=== PATIENT | male | born 1950 | race Caucasian/White ===

== ENCOUNTER → 2018-01-08 07:27 | Day surgery (SDC) | payer MEDICARE, OTHER ==
[~2018-01-08 07:27] MED LIST: Clindamycin 900 MG IVPREMIX(* 900 MG/50 ML SDV IV ONE; Clopidogrel TAB* 300 MG ONE; Flumazenil* 0.1 MG/ML 5 ML MDV ONE; Heparin 2 UNITS/ML IVPREMIX* 2,000 ML IV ONE; Heparin(*) 1000 UNIT/ML 10 ML VIAL CATH LAB IV ONE; Iohexol 350 (CONTRAST) 200 ML MDV IV ONE; LORazepam TAB(*) 1 MG ONE; Lidocaine 1% INJ* 10 MG/ML 30 ML SDV ONE; Midazolam* 1 MG/ML 10 ML VIAL (10 MG) ONE; Naloxone* 0.4 MG/ML 1 ML VIAL ONE; VERAPAMIL 2.5 MG/ML 2 ML VIAL ** 5 mg/2 ml ONE; fentaNYL* 50 MCG/ML 2 ML VIAL (100 MCG VIAL) IV SLOW PU PRN; fentaNYL* 50 MCG/ML 5 ML VIAL (250 MCG VIAL) ONE; hydrALAZINE IV* 20 MG/ML VIAL ONE; nitroGLYCERIN DRIP* 25,000 MCG/250 ML BTL ONE
[2018-01-08 09:02] LABS: ABS Basophils 0.1 10^3/ul (0-0.2); ABS Eosinophils 0.5 10^3/ul (0-0.6); ABS Lymphocytes 2.2 10^3/ul (1.0-4.8); ABS Monocytes 1.2 10^3/ul (0-0.8); ABS Neutrophils 6.6 10^3/ul (1.5-7.7); ABS Nucleated RBC 0 10^3/ul; Eosinophil % 4.8 % (0-6); Hematocrit 30 % (42-52); Hemoglobin 10.2 g/dl (14.0-18.0); Lymphocyte % 20.9 % (25-47); Mean Corpuscular HGB Conc 34 g/dl (31-36); Mean Corpuscular Hemoglobin 33 pg (27-31); Mean Corpuscular Volume 97 fL (80-94); Mean Platelet Volume 7 um3 (7.4-10.4); Nucleated Red Blood Cells % 0.1; Platelet Count 225 10^3/ul (150-450); Red Blood Count 3.08 10^6/ul (4.0-5.4); Red Cell Distribution Width 15 % (10.5-15); White Blood Count 10.6 10^3/ul (3.5-10.8)
[2018-01-08 09:14] LABS: INR 0.99 (0.77-1.02)
[2018-01-08 09:56] LABS: EGFR Non-African American 85.3 (>60)
[2018-01-08 16:10] VITALS: BP 173/78
--- NOTE | 2018-01-08 16:32 | PN ---
Progress Note - Progress Note Date of Service: 01/08/18 SOAP: Subjective: No pain or other complaints. Denies left leg or foot pain despite laying flat for several hours. Objective: Selected Entries 01/08/18 16:00 Pulse Rate 63 Heart Rate 64 Respiratory 15 Rate Blood Pressure 173/78 (mmHg) Blood Pressure 100 Mean O2 Sat by Pulse 99 Oximetry NAD, AAO x 3 Left CF arteriotomy site is soft, nontender. 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 Physical exam findings indicate patent flow from groin to foot now. Plan: 1. Plavix 75 mg PO daily x 6 months. 2. ASA 81 mg PO daily for life. 3. Continue high quality wound care to left medial ankle. 4. Interventional Radiology clinic follow up in 1 month. 5. As discussed with patient: the right leg has even more severe atherosclerotic occlusions. When/if the patient chooses to do so revascularization can be attempted at E.
--- NOTE | 2018-01-08 16:46 | RAD ---
INDICATION: Gangrenous wound overlying the medial left ankle in a patient with diffuse calcified atherosclerosis. The patient is immediately status post revascularization, atherectomy and angioplasty of the left SFA, popliteal artery and tibioperoneal trunk. COMPARISON: Same day arteriography. TECHNIQUE: Ankle-brachial indices and Doppler tracings were obtained of the lower extremities bilaterally. Volume pulse recordings were acquired at the bilateral ankles. REPORT: Ankle-brachial indices: Right: Value (SBP) Index Brachial: 180 Posterior tibialis: 129 0.72 Dorsalis pedis: 140 0.78 Left: Value (SBP) Index Brachial: 180 Posterior tibialis: 133 0.74 Dorsalis pedis: 127 0.71 Doppler waveforms (acquired at rest): In the interrogated lower extremity arteries, Doppler waveforms are monophasic in all distributions. Volume pulse recordings (acquired at rest): There is significantly increased amplitude measured at the left ankle (38 mm) relative to the right (16 mm). IMPRESSION: Fairly symmetric claudication values in the 0.7-0.8 range measured bilaterally. There is significantly increased amplitude on the volume pulse recordings measured at the left ankle relative to the right.
--- NOTE | 2018-01-11 12:01 | RAD ---
CPT II Codes: 6045F Procedure(s) performed: 1. Diagnostic right lower extremity arteriogram. 2. Revascularization of occluded right superficial femoral and popliteal arteries. 3. Diamondback orbital atherectomy of the left superficial femoral artery, left popliteal artery and tibioperoneal trunk. 4. Balloon angioplasty of the aforementioned arteries. Date of service: January 08, 2018 Indication for procedure: Gangrenous wound at medial left ankle Comparison: CTA aorta with runoff dated December 17, 2017 that shows diffuse calcified atherosclerosis and varied degrees of stenoses and occlusion involving the bilateral superficial femoral and popliteal arteries. Contrast: 80 mL Omnipaque 300 Fluoroscopy Time: 30.6 minutes Vessels Accessed: Percutaneous access was obtained with ultrasound guidance in the left common femoral artery in the antegrade direction towards the foot. Catheter arteriography, with the catheter tip located within the lumen of the following arteries, was performed at the left common femoral artery, left popliteal artery, left tibioperoneal trunk and left posterior tibial artery. Anesthesia: Conscious sedation with IV Fentanyl and Versed as well as local 1% lidocaine injected locally at the arteriotomy site. Conscious sedation time: Timeout: 959 hours Case end: 1232 hours Total conscious sedation time: 2 hours and 33 minutes Additional medications: * 400 mcg IA nitroglycerin injected intermittently throughout the course of the procedure to alleviate arterial spasm. * IV heparin 7000 Units to achieve a goal ACT of 250-300. * The patient received 1.0 mg of p.o. Ativan prior to the onset of the procedure. PROCEDURE NOTE AND INTRAPROCEDURAL IMAGING FINDINGS: Immediately prior to the procedure the patient signed consent after thoroughly discussing all risks, benefits and alternative therapies. The patient was positioned on the fluoroscopy table in the supine position and the bilateral groins and left ankle were prepped and the patient was draped in standard sterile fashion. Using fluoroscopic imaging the location of the left common femoral head was marked externally with a skin marker on the patient's groin. Utilizing sonographic guidance and palpation, the left common femoral artery was cannulated overlying the femoral head with an 18-gauge needle. An ultrasound image was saved. A 0.035" wire was slowly and smoothly advanced into the common femoral artery and distally into the proximal left superficial femoral artery under fluoroscopic imaging. No buckling of the wire was visualized to indicate dissection. With the wire securing percutaneous arterial access, the needle was removed and a 5-Brazilian SideArm access sheath was advanced under fluoroscopic control into the common femoral artery antegrade direction towards the foot into the proximal superficial femoral artery securing access. To further characterize and exactly locate the extent of atherosclerotic disease involving the left lower extremity diagnostic catheter arteriography was necessary. Despite the previous CTA, the head of the calcium burden in the left leg arteries prevented reliable determination of disease severity with CTA alone and arteriography was necessary for accurate depiction of disease as well as for guiding a treatment. Calcified atherosclerosis prior to contrast injection is relatively depicted in the left lower extremity arteries. Contrast arteriography with the tip of the access sheath in the left superficial femoral artery duplex multiple foci of stenosis in the proximal left superficial femoral artery and hypertrophy of the femoral profundus. Arteriography of the lower half of the left superficial femoral artery and popliteal artery was performed from the access sheath which depicted multiple foci of complete occlusion of the distal SFA and superior popliteal artery with collateralized filling provided by muscular branches of the left femoral profundus. The distal left popliteal artery appeared to be patent. Over the wire the 5-Brazilian SideArm access sheath was removed and replaced with a 7-Brazilian 23 cm length access sheath which was advanced under fluoroscopic control into the proximal superficial femoral artery. Utilizing a combination of a 0.035 inch hydrophilic wire and a 4-Brazilian curved tip catheter the occluded left superficial femoral artery and proximal left popliteal artery was revascularize and the wire was advanced as far as the tibioperoneal trunk. Over the wire a TerumKili NaviCross catheter was advanced until the tip was in the popliteal artery. The wire was removed and contrast arteriography was performed showing a patent distal left popliteal artery. At approximately the branch level of the left anterior tibial artery there is an eccentric filling defect consistent with calcium at the superiormost portion of the left tibioperoneal trunk. Distal to this there appears to be adequate filling of the proximal infrapopliteal arteries. Arteriography of the more distal infrapopliteal arteries defects patent in-line flow in the posterior tibial and anterior tibial artery with communication of the midfoot "pedal loop". The left peroneal artery provides flow up to the ankle joint in addition to providing collateralized flow supplementing the MILY and CLEAN ROOM OPERATOR. Through the catheter a 0.018 inch Viper wire was advanced to the distal left peroneal artery. Over the wire the CSI Diamondback Solid atherectomy system was advanced to the proximal left superficial femoral artery and orbital atherectomy was performed along essentially the entire length of the left superficial femoral artery and the proximal portion of the left popliteal artery. The system was advanced through the patent distal left popliteal artery and orbital atherectomy was performed at the level of the bifurcation of the MILY and superior portion of the tibioperoneal trunk to treat the focus of calcium identified on previous arteriography. The atherectomy system was drawn back and atherectomy was repeated at the more severe levels of stenosis and at the sites of previously identified occlusion. The 7-Brazilian access sheath was drawn back until the tip was in the common femoral artery and atherectomy was performed including the distal most portion of the left common femoral artery across the SFA ostium to include the proximal most portions of the left superficial femoral artery. Arteriography was acquired intermittently to evaluate for any dissection or signs of extravasation which were not seen. The atherectomy system was removed and a 5 mm x 200 mm Passeo-35 balloon was advanced and balloon angioplasty was performed from the distal most portion of the left common femoral artery, across the left SFA ostium and along the entire length of the superficial femoral artery into the proximal popliteal artery. The inferior most balloon angioplasty included the superior tibioperoneal trunk to treat the focus of stenosis identified at the beginning of the procedure. A final arteriogram was performed from the access sheath showing brisk patent flow throughout the length of the left SFA into the proximal portions of the infrapopliteal arteries. To better depicted the infrapopliteal arteries, at of concern for the patient's gangrenous left ankle wound, a 4-Brazilian catheter was advanced to the superior most portion of the left posterior tibial artery and arteriography was performed of the left posterior tibial artery demonstrating patent in-line flow into the plantar arteries. The catheter was drawn back to the tibioperoneal trunk and flow was documented in all 3 infrapopliteal arteries. Over the wire the access sheath was exchanged for a new 7-Brazilian, 11 cm length access sheath intended specifically for percutaneous arterial closure. Through the side arm of the access sheath arteriography of the right common femoral artery demonstrated an appropriate puncture of the common femoral artery above the bifurcation and below the inferior epigastric artery. After an appropriate resterilization of the arteriotomy and exchange for new sterile gloves, attempt was made to deploy the minx closure device which failed due to a punctured balloon. Access with a hydrophilic wire was again made into the superficial femoral artery allowing for the sheath to be reinserted into the artery. A second Minx closure device was deployed successfully at the common femoral arteriotomy and pressure held for approximately 15 minutes. There were no signs of bleeding at the percutaneous arterial access site and the site was dressed with sterile gauze and Tegaderm. The patient tolerated the procedure well and was transferred to angiography holding bay for standard post procedural observation. SUMMARY OF PROCEDURE, IMAGING FINDINGS AND INTERVENTIONS PERFORMED: 1. Diagnostic studies performed: * Arterial access was obtained at the left common femoral artery in the antegrade direction (i.e. towards the foot) with ultrasound guidance. A sonographic image was recorded. * Although the patient had a prior CTA with runoff, the extensive calcified atherosclerosis of the left leg arteries prevented reliable determination of foci of occlusion as well as degree of stenoses involving the left leg arteries with CTA and catheter arteriography was necessary. Diagnostic catheter angiography (necessary for accurate diagnosis and to perform the appropriate interventions) was performed with the catheter tip in the left common femoral artery, left superficial femoral artery, left popliteal artery, left tibioperoneal trunk and left posterior tibial artery. * Catheter arteriography was performed of the left leg arterial system from the distal left external iliac artery to the "pedal loop" of the left foot. * At the conclusion of the procedure arteriography was performed through the side arm of the access sheath to image the distal left external iliac artery, left common femoral artery and proximal superficial femoral artery and femoral profundus. 2. Interpretation of diagnostic studies performed: * Multifocal high-grade stenoses of the left superficial femoral artery with multiple occlusions in the distal left superficial femoral artery and superior popliteal artery as well as focus of high-grade stenosis at the superiormost portion of the left tibioperoneal trunk. * All 3 infrapopliteal arteries exhibited adequate patency with 2 vessel runoff provided by the MILY and CLEAN ROOM OPERATOR with a communicating "pedal loop" * Arteriography performed for the purpose of deploying a percutaneous arterial closure device demonstrates adequately patent left external iliac artery, common femoral artery and proximal superficial femoral artery and femoral profundus. 3. Surgical interventions performed: * Revascularization through the occluded left SFA and popliteal arteries utilizing a hydrophilic wire and 4-Brazilian curved tip catheter. * Orbital atherectomy with the CSI Diamondback Solid system from the distal most left common femoral artery, across the left SFA ostium, through the entire length of the left superficial femoral artery and superior portions of the left popliteal artery and also at the superiormost left tibioperoneal trunk. * Balloon angioplasty of the previously atherectomized arteries with a 5 mm x 200 mm Passeo-35 balloon. The balloon was inflated just below burst pressure yielding an approximate diameter measurement of 5.5 mm. * Closure of the right common femoral artery was achieved with a Minx closure device followed by 15 minutes of gentle manual pressure. 4. Interpretation of interventions performed: * Final post procedural arteriography demonstrated brisk in-line flow from the left common femoral artery through the SFA, popliteal and infrapopliteal arteries as far as the left mid foot "pedal loop". Plan: 1. Aspirin 81 mg p.o. daily for life. 2. Plavix 75 mg p.o. daily x 6 months. 3. Clinical and imaging follow-up according to standard Interventional Radiology protocol.
== END | disposition home or self-care (01) ==
LOC: CHICATH 07:27
PROVIDERS: ATTEND Radiology Diagnostic Radiology
DX: Z02.9 Encounter for administrative examinations, unspecified (principal)
CPT/HCPCS: 36415; 76937; 80048; 85025; 85610; 85730; 93922; 99156; 99157; A9270-GY; C1724; C1725; C1760; C1769; C1887; J0360; J1644; J2250; J2310; J3010

== ENCOUNTER 2018-01-08 22:18 | Inpatient (IN) | payer MEDICARE, OTHER ==
[2018-01-08] MEDS ORDERED: NS 0.9% 1000 ML*IV.FLUID IV ONE (22:55)
[2018-01-08] MEDS ORDERED: Acetaminophen TAB* 325 MG PO ONE (22:55)
[2018-01-08] MEDS ORDERED: Vancomycin(*) 1,000 MG in NS 0.9% 250 ML* 250 ML IVPB ONE (22:58)
[2018-01-08] MEDS ORDERED: Piperacillin/Tazobac ADVAN(*) 3.375 GM in NS 0.9% 100 ML* 100 ML IVPB ONE (22:59)
[2018-01-08 23:17] LABS: ABS Basophils 0 10^3/ul (0-0.2); ABS Eosinophils 0.2 10^3/ul (0-0.6); ABS Lymphocytes 1.1 10^3/ul (1.0-4.8); ABS Monocytes 1.4 10^3/ul (0-0.8); ABS Neutrophils 7.8 10^3/ul (1.5-7.7); ABS Nucleated RBC 0 10^3/ul; Eosinophil % 1.6 % (0-6); Hematocrit 31 % (42-52); Hemoglobin 10.4 g/dl (14.0-18.0); Lymphocyte % 10.5 % (25-47); Mean Corpuscular HGB Conc 34 g/dl (31-36); Mean Corpuscular Hemoglobin 33 pg (27-31); Mean Corpuscular Volume 96 fL (80-94); Mean Platelet Volume 7 um3 (7.4-10.4); Nucleated Red Blood Cells % 0.2; Platelet Count 217 10^3/ul (150-450); Red Blood Count 3.19 10^6/ul (4.0-5.4); Red Cell Distribution Width 15 % (10.5-15); White Blood Count 10.5 10^3/ul (3.5-10.8)
[2018-01-08 23:19] LABS: INR 1.03 (0.77-1.02)
[2018-01-08 23:28] LABS: EGFR Non-African American 82.1 (>60)
--- NOTE | 2018-01-09 00:44 | ED ---
Doroteo Franco Tecjoon scribjerome for Fara Lema MD on 01/08/18 at 2258 . Complex/Multi-Sys Presentation - HPI Summary HPI Summary: This patient is a 67 year old male BIBA to [facility] with a chief complaint of weakness since approx. 1800 today. Patient states that he has suffered two mechanical falls, in which his legs gave out on him. The pain is rated 4/10 in severity. Symptoms aggravated by nothing. Symptoms alleviated by nothing. 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 Patient additionally reports general bodyaches, ulcer in left foot. Patient denies fever, chills. Patient states that he has never had a stroke before. Patient is diabetic. - History Of Current Complaint Chief Complaint: EDWeakness Time Seen by Provider: 01/08/18 22:27 Hx Obtained From: Patient Onset/Duration: Lasting Hours, Still Present Timing: Constant Severity Initially: Moderate - 4/10 Aggravating Factor(s): Nothing Alleviating Factor(s): Nothing Associated Signs And Symptoms: Positive: Other - general bodyaches, ulcer on left foot. Negative: Fever - Allergies/Home Medications Allergies/Adverse Reactions: Allergies Allergy/AdvReac Type Severity Reaction Status Date / Time No Known Drug Allergies Allergy Unknown Unknown Verified 12/17/17 10:31 Reaction Details PMH/Surg Hx/FS Hx/Imm Hx Previously Healthy: No Endocrine/Hematology History: Reports: Hx Diabetes Cardiovascular History: Reports: Hx Hypertension History: Denies: Hx Renal Disease Opthamlomology History: Denies: Hx Legally Blind EENT History: Denies: Hx Deafness - Surgical History Surgery Procedure, Year, and Place: back surgery. left knee. bile duct Infectious Disease History: No Infectious Disease History: Denies: Traveled Outside the [place] in Last 30 Days - Family History Known Family History: Positive: Diabetes - Social History Alcohol Use: None Hx Substance Use: No Substance Use Type: Reports: None Hx Tobacco Use: Yes Smoking Status (MU): Heavy Every Day Tobacco Smoker Review of Systems Negative: Fever, Chills Positive: Myalgia, Other - ulcer on left foot Positive: Weakness All Other Systems Reviewed And Are Negative: Yes Physical Exam - Summary Physical Exam Summary: VITAL SIGNS: Reviewed. GENERAL: Patient is a well-developed and nourished malewho is lying comfortable in the stretcher. Patient is not in any acute respiratory distress. HEAD AND FACE: No signs of trauma. No ecchymosis, hematomas or skull depressions. No sinus tenderness. EYES: PERRLA, EOMI x 2, No injected conjunctiva, no nystagmus. EARS: Hearing grossly intact. Ear canals and tympanic membranes are within normal limits. MOUTH: Oropharynx within normal limits. NECK: Supple, trachea is midline, no adenopathy, no JVD, no carotid bruit, no c- spine tenderness, neck with full ROM. CHEST: Symmetric, no tenderness at palpation LUNGS: Clear to auscultation bilaterally. No wheezing or crackles. CVS: Regular rate and rhythm, S1 and S2 present, no murmurs or gallops appreciated. ABDOMEN: Soft, non-tender. No signs of distention. No rebound no guarding, and no masses palpated. Bowel sounds are normal. EXTREMITIES: Bilateral trace edema in legs. Left foot and ankle swollen. 3 x 1.5 inch ulcer in medial aspect of left ankle thats gangrous, patient stays it s old NEURO: Alert and oriented x 3. No acute neurological deficits. Speech is normal and follows commands. SKIN: Dry and warm Triage Information Reviewed: Yes Vital Signs On Initial Exam: Initial Vitals Temp Pulse Resp BP Pulse Ox 99.5 F 75 15 149/66 98 01/08/18 22:39 01/08/18 22:39 01/08/18 22:39 01/08/18 22:39 01/08/18 22:39 Vital Signs Reviewed: Yes Diagnostics - Vital Signs Vital Signs Temp Pulse Resp BP Pulse Ox 01/08/18 22:39 99.5 F 75 15 149/66 98 - Laboratory Result Diagrams: 01/08/18 22:34 01/08/18 22:34 Lab Statement: Any lab studies that have been ordered have been reviewed, and results considered in the medical decision making process. - Radiology XR Ankle Xray Interpretation: Positive (See Comments) - XR Ankle reveals, per radiologist , IMPRESSION: ankle shows osteopenia and no signs of osteomyelitis. No fracture ED physician has reviewed this radiology report. Pending official report. Radiology Interpretation Completed By: ED Physician CXR Xray Interpretation: Positive (See Comments) - CXR reveals, per radiologist, IMPRESSION: Bilateral Mild congestion ED physician has reviewed this radiology report. Pending official report Radiology Interpretation Completed By: ED Physician XR Foot Xray Interpretation: No Acute Changes Radiology Interpretation Completed By: ED Physician - CXR Foot reveals, per radiologist, IMPRESSION: No Acute Process. ED physician has reviewed this radiology report. Pending official report - EKG 2302 Cardiac Rate: NL EKG Rhythm: Sinus Rhythm - 69 EKG Interpretation: NSR (69 BPM), Normal axis. Normal interval. No ischemic changes. Complex Multi-Symp Course/Dx Course Of Treatment: This patient is a 67 year old male BIBA to [facility] with a chief complaint of weakness since approx. 1800 today. Patient states that he has suffered two mechanical falls, in which his legs gave out on him. Patient received an angioplasty today, went home, and had difficulty ambulating. An EKG , taken 2301 reveals NSR (69 BPM), Normal axis. Normal interval. No ischemic changes. XR Ankle reveals, per radiologist, IMPRESSION: ankle shows osteopenia and no signs of osteomyelitis. No fracture. ED physician has reviewed this radiology report. Pending official report. CXR reveals, per radiologist, IMPRESSION: Bilateral Mild congestion. ED physician has reviewed this radiology report. Pending official report. CXR Foot reveals, per radiologist, IMPRESSION: No Acute Process. ED physician has reviewed this radiology report. Pending official report. Bloodwork Obtained. Urinalysis Obtained. In the ED course the patient was given Tylenol, Vancomycin, Piperacillin. We discussed patient care with Dr. Abarca (Hospitalist) and they agreed to accept the patient. Patient will be admitted to the hospital with a diagnosis of cellulitis of the left leg. The patient is agreeable with this plan. - Diagnoses Provider Diagnoses: Cellulitis of left leg - Physician Notifications Discussed Care Of Patient With: Rohan Abarca - Hospitalist Time Discussed With Above Provider: 00:39 - We discussed patient care with Dr. Abarca (Hospitalist) and they agreed to accept the patient. Instructed by Provider To: Admit As Inpatient Discharge - Discharge Plan Condition: Stable Disposition: ADMITTED TO [facility] Referrals: Quentin Dowell MD [Primary Care Provider] - The documentation as recorded by the Doroteo harvey Tecjoon accurately reflects the service I personally performed and the decisions made by , Fara Lema MD.
[2018-01-09] MEDS ORDERED: Albuterol 2.5 MG/3 ML NEB.SOL* (0.083%) INH PRN (01:43)
[2018-01-09] MEDS ORDERED: Ondansetron INJ* 2 MG/ML VIAL IV PRN (01:44)
[2018-01-09] MEDS ORDERED: Vancomycin per Pharmacy* NOTE FOLLOW UP SCH (02:00)
--- NOTE | 2018-01-09 02:11 | HP ---
H&P (Free Text) History and Physical: PCP: Christopher Dowell MD Date/Time: 01/09/2018 022 CC: weakness, falls HPI: Mr Au is a 67YO poor historian who relates [place] [facility] [place] rev[place]ization procedure was performed via Miguel Mckeon MD interventional radiology was performed. 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 evening into Thursday he developed progressive generalized weakness culminating in a fall from which he was unable to get up. He denies pain or deformity. EMS was called. He denies cough, congestion, F/C, N /V, diarrhea, chest pain, palpitations, abdominal pain, change in bowel/bladder , or other issues. PMedHx DM2 HLD GERD Ambulatory Orders Atorvastatin* [Lipitor*] 20 mg PO DAILY 01/07/18 Cholecalciferol (Vitamin D3) [Vitamin D3] 2,000 unit PO DAILY 01/07/18 Cholestyramine Resin* [Questran*] 4 gm PO BID 01/07/18 Collagenase 250 MG/GM OINT* [Santyl 250 mg/gm Oint*] 1 applic .SEE ORDER SEE INSTRUCTIONS 01/07/18 Divalproex ER TAB(*) [Depakote ER TAB(*)] 3 tab PO BID 01/07/18 Insulin Detemir (NF) [Levemir (NF)] 5 unit SUBCUT BEDTIME 01/07/18 Pantoprazole Sodium 40 mg PO DAILY 01/07/18 Ursodiol CAP* [Actigall CAP 300 MG*] 300 mg PO DAILY 01/07/18 Clopidogrel TAB* [Plavix TAB*] 75 mg PO DAILY 180 Days tab 01/08/18 Allergies No Known Drug Allergies Allergy (Unknown, Verified 12/17/17 10:31) Unknown Reaction Details PSurgHx LLE revascularization 01/07/2018 laparotomy for uncertain cause SocHx: active smoker, no alcohol or recreational drugs; full code status FamHx: Mother: passed at 96 2nd "old age"; Father: passed at 74 2nd colon CA; Sister 1: no known health issues; Sister 2: no known health issues; Brother 1: no known health issues; Brother 2: no known health issues ROS: as above, otherwise reviewed and all were negative vitals: Vital Signs Temp 37.1 C 03/10/18 01:48 Pulse 65 01/09/18 01:48 Resp 18 01/09/18 01:48 BP 110/72 01/09/18 01:48 Pulse Ox 100 01/09/18 01:48 Intake & Output 01/08/18 01/08/18 01/09/18 11:59 23:59 11:59 Intake Total 250 Balance 250 Weight 85.729 kg Intake: IV Fluids 250 Constitutional: NAD, normally developed, well-nourished elderly white male HEENM: atraumatic; sclera/conjunctiva: anicteric/clear; hearing: clinically mildly decreased; oropharynx: clear, mucosa tacky Neck: soft tissue: non-tender; thyroid: normal Pulmonary: clear to auscultation bilaterally, good aeration, no accessory muscle use CV: RR/RR, normal S1S2, no carotid bruit, no jugular venous distention, 2+ B DP/ PT, trace LLE edema Abdominal: soft, non-distended, non-tender, no rebound/guarding/rigidity, normoactive bowel sounds, no hepatosplenomegaly or masses, no costovertebral angle tenderness Musculoskeletal: general: grossly intact, no tenderness w/ palpation Integumental: LLE arterial ulcer with eschar & malodor with associated erythema & warmth Psychiatric orientation: AA&O to PPS affect: calm mood: cooperative eye contact: poor content: seemingly reliable responses: mildly slowed insight: fair Testing: Lab Results 01/08/18 01/08/18 01/08/18 Range/Units 22:34 22:34 22:34 WBC 10.5 (3.5-10.8) 10^3/ul RBC 3.19 L (4.0-5.4) 10^6/ul Hgb 10.4 L (14.0-18.0) g/dl Hct 31 L (42-52) % MCV 96 H (80-94) fL MCH 33 H (27-31) pg MCHC 34 (31-36) g/dl RDW 15 (10.5-15) % Plt Count 217 (150-450) 10^3/ul MPV 7 L (7.4-10.4) um3 Neut % (Auto) 74.3 (38-83) % Lymph % (Auto) 10.5 L (25-47) % [place] % (Auto) 13.2 H (0-7) % Eos % (Auto) 1.6 (0-6) % Baso % (Auto) 0.4 (0-2) % Absolute Neuts (auto) 7.8 H (1.5-7.7) 10^3/ul Absolute Lymphs (auto) 1.1 (1.0-4.8) 10^3/ul Absolute Monos (auto) 1.4 H (0-0.8) 10^3/ul Absolute Eos (auto) 0.2 (0-0.6) 10^3/ul Absolute Basos (auto) 0 (0-0.2) 10^3/ul Absolute Nucleated RBC 0 10^3/ul Nucleated RBC % 0.2 INR (Anticoag Therapy) 1.03 H (0.77-1.02) APTT 32.1 (26.0-36.3) seconds Sodium 127 L (133-145) mmol/L Potassium 4.6 (3.5-5.0) mmol/L Chloride 99 L (101-111) mmol/L Carbon Dioxide 23 (22-32) mmol/L Anion Gap 5 (2-11) mmol/L BUN 15 (6-24) mg/dL Creatinine 0.92 (0.67-1.17) mg/dL Est GFR ( Amer) 105.5 (>60) Est GFR (Non-Af Amer) 82.1 (>60) BUN/Creatinine Ratio 16.3 (8-20) Glucose 118 H (70-100) mg/dL Lactic Acid (0.5-2.0) mmol/L Calcium 8.7 (8.6-10.3) mg/dL Total Bilirubin 0.50 (0.2-1.0) mg/dL AST 19 (13-39) U/L ALT 9 (7-52) U/L Alkaline Phosphatase 81 (34-104) U/L Total Creatine Kinase 194 (10-223) U/L Troponin I 0.00 (<0.04) ng/mL C-Reactive Protein 19.06 H (< 5.00) mg/L Total Protein 6.1 L (6.4-8.9) g/dL Albumin 2.8 L (3.2-5.2) g/dL Globulin 3.3 (2-4) g/dL Albumin/Globulin Ratio 0.8 L (1-3) 01/08/18 Range/Units 22:34 WBC (3.5-10.8) 10^3/ul RBC (4.0-5.4) 10^6/ul Hgb (14.0-18.0) g/dl Hct (42-52) % MCV (80-94) fL MCH (27-31) pg MCHC (31-36) g/dl RDW (10.5-15) % Plt Count (150-450) 10^3/ul MPV (7.4-10.4) um3 Neut % (Auto) (38-83) % Lymph % (Auto) (25-47) % [place] % (Auto) (0-7) % Eos % (Auto) (0-6) % Baso % (Auto) (0-2) % Absolute Neuts (auto) (1.5-7.7) 10^3/ul Absolute Lymphs (auto) (1.0-4.8) 10^3/ul Absolute Monos (auto) (0-0.8) 10^3/ul Absolute Eos (auto) (0-0.6) 10^3/ul Absolute Basos (auto) (0-0.2) 10^3/ul Absolute Nucleated RBC 10^3/ul Nucleated RBC % INR (Anticoag Therapy) (0.77-1.02) APTT (26.0-36.3) seconds Sodium (133-145) mmol/L Potassium (3.5-5.0) mmol/L Chloride (101-111) mmol/L Carbon Dioxide (22-32) mmol/L Anion Gap (2-11) mmol/L BUN (6-24) mg/dL Creatinine (0.67-1.17) mg/dL Est GFR ( Amer) (>60) Est GFR (Non-Af Amer) (>60) BUN/Creatinine Ratio (8-20) Glucose (70-100) mg/dL Lactic Acid 1.3 (0.5-2.0) mmol/L Calcium (8.6-10.3) mg/dL Total Bilirubin (0.2-1.0) mg/dL AST (13-39) U/L ALT (7-52) U/L Alkaline Phosphatase (34-104) U/L Total Creatine Kinase (10-223) U/L Troponin I (<0.04) ng/mL C-Reactive Protein (< 5.00) mg/L Total Protein (6.4-8.9) g/dL Albumin (3.2-5.2) g/dL Globulin (2-4) g/dL Albumin/Globulin Ratio (1-3) ECG, personally reviewed: NSR rate 69, no ischemia CXR, personally reviewed: no acute process Impression: 67M presenting with LLE arterial ulcer & associated cellulitis DIAGNOSIS & PLAN Primary LLE arterial ulcer & associated cellulitis : s/p revascularization via Miguel Mckeon MD interventional radiology, consider consulting in AM : IV ABX : IVFs : blood & wound CXs : PT evaluation : supportive care Secondary DM2 : consistent carb diet : correctional insulin : A1c 5.4 11/2017 HLD : continue atorvastatin once reconciled GERD : omeprazole Admission Rational: inpatient for limb threatening cellulitis requiring IV ABX; inappropriate for outpatient setting DVTp: heparin SQ Code Status: full HCP: sister, Susie Toure
[2018-01-09 03:35] LABS: EGFR Non-African American 102.3 (>60)
[2018-01-09] MEDS ORDERED: Omeprazole CAP* 20 MG PO SCH (06:00)
[2018-01-09 06:17] LABS: ABS Basophils 0.1 10^3/ul (0-0.2); ABS Eosinophils 0.3 10^3/ul (0-0.6); ABS Lymphocytes 1.8 10^3/ul (1.0-4.8); ABS Monocytes 1.4 10^3/ul (0-0.8); ABS Neutrophils 6.8 10^3/ul (1.5-7.7); ABS Nucleated RBC 0 10^3/ul; Eosinophil % 2.7 % (0-6); Hematocrit 30 % (42-52); Hemoglobin 9.9 g/dl (14.0-18.0); Mean Corpuscular HGB Conc 34 g/dl (31-36); Mean Corpuscular Hemoglobin 33 pg (27-31); Mean Corpuscular Volume 97 fL (80-94); Mean Platelet Volume 7 um3 (7.4-10.4); Nucleated Red Blood Cells % 0.1; Platelet Count 187 10^3/ul (150-450); Red Blood Count 3.04 10^6/ul (4.0-5.4); Red Cell Distribution Width 16 % (10.5-15); White Blood Count 10.4 10^3/ul (3.5-10.8)
[2018-01-09 06:29] LABS: Urine Appearance Clear; Urine Blood 1+ (Negative); Urine Color Straw; Urine Ketones Negative (Negative); Urine Protein 2+(100 mg/dL) (Negative); Urine Urobilinogen Negative (Negative)
[2018-01-09 06:33] LABS: EGFR Non-African American 89.9 (>60)
[2018-01-09] MEDS: Insulin LISPRO* 1 UNITS UNIT SUBCUT SCH ×4 (07:22→20:40)
--- NOTE | 2018-01-09 07:52 | RAD ---
HISTORY: Fall, weakness, and COMPARISONS: None VIEWS: 6, Frontal, lateral, and oblique views of the left ankle and of the left foot FINDINGS: BONE DENSITY: There is diffuse osteopenia. BONES: There is no displaced fracture. There is a calcaneal enthesophytes. There is no appreciable erosion or periosteal reaction. JOINTS: There is mild osteoarthritis of the midfoot. There is osteoarthritis of the first MTP joint. ALIGNMENT: There is no dislocation. SOFT TISSUES: There is a soft tissue defect along the medial ankle consistent with the history of wound. There is dystrophic calcification of the soft tissues. OTHER FINDINGS: None. IMPRESSION: 1. SOFT TISSUE DEFECT OF THE ANKLE, WITHOUT APPRECIABLE EROSION OR PERIOSTEAL REACTION. PLAIN FILM FINDINGS OF OSTEOMYELITIS ARE RELATIVELY LATE FINDINGS. IF THERE IS PERSISTENT CLINICAL CONCERN FOR OSTEOMYELITIS, RECOMMEND CORRELATION WITH FOLLOWUP IMAGING, THREE-PHASE BONE SCANNING, WHITE BLOOD CELL SCAN, AND/OR MRI OF THE AFFECTED REGION. 2. OSTEOPENIA.
--- NOTE | 2018-01-09 07:54 | RAD ---
HISTORY: Weakness COMPARISONS: None VIEWS: 1: frontal portable view of the chest at 11:20 PM FINDINGS: LINES AND TUBES: None. CARDIOMEDIASTINAL SILHOUETTE: The cardiomediastinal silhouette is normal for portable technique. PLEURA: The costophrenic angles are sharp. No pleural abnormalities are noted. LUNG PARENCHYMA: The lung volumes are low. There is prominence of the central pulmonary vasculature.. ABDOMEN: The upper abdomen is clear. There is no subphrenic gas. BONES AND SOFT TISSUES: No bone or soft tissue abnormalities are noted. IMPRESSION: LOW LUNG VOLUMES WITH PULMONARY VASCULAR CONGESTION
[2018-01-09] MEDS: Cefepime 1 GM in Dextrose(*) 1 GM/50 ML BAG IV SCH ×2 (08:10→20:16)
[2018-01-09] MEDS: Docusate CAP* 100 MG PO SCH ×2 (08:11→20:42)
[2018-01-09] MEDS: Acetaminophen TAB* 325 MG PO PRN (08:11)
[2018-01-09] MEDS: Mometasone/Formoter 200/5 MDI INH SCH ×2 (08:37→19:58)
--- NOTE | 2018-01-09 12:14 | PN ---
Subjective Date of Service: 01/09/18 Interval History: Patient reports pain in LLE which has worsened after revascularization. - He reports it hurts when he ambulates and puts weight on the LLE stating he is unable to walk on that leg. He denies any fever or chills. No groin/abdominal pain. He denies weakness, numbness. No N/V/D. He follows with Dr. Kamara in [place] for wound care on a weekly basis. He denies having an MRI or taking abx recently. He is noted to be a poor historian. . Objective Active Medications: Acetaminophen (Tylenol Tab*) 650 mg PO Q6H PRN PRN Reason: FEVER/PAIN Last Admin: 01/09/18 08:11 Dose: 650 mg Albuterol (Ventolin 2.5 Mg/3 Ml Neb.Alexa*) 2.5 mg INH Q2H PRN PRN Reason: SOB/WHEEZING Docusate Sodium (Colace Cap*) 200 mg PO BID [facility] Last Admin: 01/09/18 08:11 Dose: 200 mg Heparin Sodium (Porcine) (Heparin Vial(*)) 5,000 units SUBCUT Q8HR [facility] Sodium Chloride (Ns 0.9% 1000 Ml*) 1,000 mls @ 100 mls/hr IV PER RATE [facility] Vancomycin HCl 1,250 mg/ (Sodium Chloride) 250 mls @ 166.667 mls/hr IVPB Q12H [facility] Cefepime HCl (Maxipime 1 Gm In Dextrose Duplex (*)) 1 gm in 50 mls @ 100 mls/ hr IV Q12H [facility] Last Admin: 01/09/18 08:10 Dose: 100 mls/hr Insulin Human Lispro (Humalog*) 0 units SUBCUT ACHS [facility] PRN Reason: Protocol Last Admin: 01/09/18 07:22 Dose: Not Given Melatonin (Melatonin (Nf)) 3 mg PO BEDTIME PRN; Protocol PRN Reason: Sleep Mometasone Furoate/Formoterol Fumar (Dulera 200/5 Mdi*) 2 puff INH BID [facility] Last Admin: 01/09/18 08:37 Dose: Not Given Omeprazole (Prilosec Cap*) 20 mg PO DAILY@0600 [facility] Last Admin: 01/09/18 05:19 Dose: 20 mg Ondansetron HCl (Zofran Inj*) 4 mg IV Q6H PRN PRN Reason: NAUSEA Pharmacy Consult (Vancomycin Per Pharmacy*) 1 note FOLLOW UP .VANC PER PHARMACY [facility] Pharmacy Profile Note (Vancomycin Trough Check) 1 note FOLLOW UP 1130 ONE Stop: 01/10/18 11:31 Vital Signs - 8 hr 01/09/18 01/09/18 01/09/18 07:29 07:52 08:38 Temperature 97.7 F Pulse Rate 60 57 Respiratory 16 18 16 Rate Blood Pressure 158/62 (mmHg) O2 Sat by Pulse 100 98 Oximetry Oxygen Devices in Use Now: None Appearance: 67 yo male laying in bed A+O x3 in NAD - poor historian Eyes: PERRLA Ears/Nose/Mouth/Throat: Mucous Membranes Moist Respiratory: Symmetrical Chest Expansion and Respiratory Effort, Clear to Auscultation Cardiovascular: NL Sounds; No Murmurs; No JVD, RRR Abdominal: NL Sounds; No Tenderness; No Distention Extremities: No Clubbing, Cyanosis, - - lower extremities warm, pink. DP pulses 2+ bilaterally (weak but palpable). Can move LE extremity independently. Sensation to LE's. Skin: - - LLE wound with eschar, exudate and malodor; erythema and warmth surrounding wound; tenderness to wound site with palpation. Neurological: Alert and Oriented x 3, NL Sensation, - - moves all extremities equally. no facial droop. 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 Lines/Tubes/Other Access: Clean, Dry and Intact Peripheral IV Nutrition: Taking PO's Result Diagrams: 01/09/18 05:42 01/09/18 05:42 Assess/Plan/Problems-Billing Assessment: Mr. Au is a 67 yo male with a PMH of DM2, HLD, GERD who recently on 01/07 underwent a LLE revascularization procedure with Dr. 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 The next day 01/08 he developed progressive weakness and fell unable t get up. He was admitted for cellulitis and IV abx. - Patient Problems (1) Chronic ulcer of ankle Comment: - CRP mildly elevated. Afebrile. No leukocytosis. No signs of sepsis. - s/p revascularization with Dr. Mckeon on 01/07; Discussed with Dr. Mckeon who said it is to be expected to have reperfusion pain and may give an appearance like cellulitis. Most likely this is secondary to revascularization and not a cellulitis, with chronic wound infection. - Appreciate surgery consult; Dr. Howell looked at wound; no need for debridement and pt can follow-up in wound clinic at his scheduled appointment this week. -ID to consult to determine if he require long-term IV abx vs oral. - Continue vanco, cefepime - wound and blood cx pending - Pt follows with Dr. Kamara at [facility] - obtain records. Pt should have an MRI however waiting for records to see if this was recently done at [facility]. Pt is a poor historian. - continue ASA, Plavix (2) Weakness Comment: - normal neuro exam. - supect LLE weakness/pain is secondary to reperfusion pain. - PT eval - Encourage OOB QID today (3) Diabetes 1.5, managed as type 2 Comment: -Lantus 5 units QPM - FSBG ACHS (4) HLD (hyperlipidemia) Comment: continue statin (5) GERD (gastroesophageal reflux disease) Comment: PPI (6) DVT prophylaxis Comment: HSQ (7) Full code status Status and Disposition: inpatient.
[2018-01-09] MEDS ORDERED: Clopidogrel TAB* 75 MG PO ONE (12:19)
[2018-01-09] MEDS: Vancomycin(*) 1,250 MG in NS 0.9% 250 ML* 250 ML IVPB SCH (12:34)
[2018-01-09] MEDS ORDERED: Aspirin 81 mg CHEW TAB* 81 MG TAB.CHEW PO ONE (13:20)
[2018-01-09] MEDS: Dakins Solution 0.25% (1/2 STR.)* 473 ML BTL TOPICAL SCH (14:05)
[2018-01-09] MEDS: Nicotine PATCH 21 MG/24 HR* PATCH TRANSDERM SCH (14:05)
[2018-01-09] MEDS: Insulin GLARGINE(*) 1 UNITS UNIT SUBCUT SCH (20:41)
[2018-01-09] MEDS: Divalproex ER TAB(*) 250 MG PO SCH (20:42)
[2018-01-09] MEDS: Cholestyramine Resin* 4 GM POWDER PO SCH (20:42)
[2018-01-09] MEDS: Nicotine Patch Removal NOTE FOLLOW UP SCH (20:50)
[2018-01-09] MEDS ORDERED: Insulin Detemir (NF) 100 UNIT/ML 10 ML VIAL SUBCUT SCH (21:00)
[2018-01-09] MEDS: NS 0.9% 1000 ML* 1,000 ML IV SCH (21:18)
[2018-01-10] MEDS ORDERED: hydrALAZINE IV* 20 MG/ML VIAL IV PRN (00:01)
[2018-01-10] MEDS: Vancomycin(*) 1,250 MG in NS 0.9% 250 ML* 250 ML IVPB SCH ×2 (00:09→12:48)
[2018-01-10] MEDS: CMCS:Pantoprazole TAB (NF) 40 MG TAB PO SCH (05:44)
[2018-01-10] MEDS: Heparin VIAL(*) 5000 UNITS/ML VIAL (FIVE THOUSAND) SUBCUT SCH ×3 (05:44→22:09)
[2018-01-10] MEDS ORDERED: Cefepime(*) 1 GM in NS 0.9% 50 ML* 50 ML IVPB SCH (06:00)
[2018-01-10 06:07] LABS: ABS Basophils 0 10^3/ul (0-0.2); ABS Eosinophils 0.4 10^3/ul (0-0.6); ABS Lymphocytes 1.9 10^3/ul (1.0-4.8); ABS Monocytes 1.1 10^3/ul (0-0.8); ABS Neutrophils 5.9 10^3/ul (1.5-7.7); ABS Nucleated RBC 0 10^3/ul; Eosinophil % 4.4 % (0-6); Hematocrit 27 % (42-52); Hemoglobin 9.1 g/dl (14.0-18.0); Lymphocyte % 20.4 % (25-47); Mean Corpuscular HGB Conc 34 g/dl (31-36); Mean Corpuscular Hemoglobin 33 pg (27-31); Mean Corpuscular Volume 96 fL (80-94); Mean Platelet Volume 7 um3 (7.4-10.4); Nucleated Red Blood Cells % 0.1; Platelet Count 173 10^3/ul (150-450); Red Blood Count 2.78 10^6/ul (4.0-5.4); Red Cell Distribution Width 15 % (10.5-15); White Blood Count 9.3 10^3/ul (3.5-10.8)
[2018-01-10 06:23] LABS: EGFR Non-African American 118.3 (>60)
[2018-01-10] MEDS: Mometasone/Formoter 200/5 MDI INH SCH ×2 (07:51→19:45)
[2018-01-10] MEDS: Insulin LISPRO* 1 UNITS UNIT SUBCUT SCH ×4 (08:06→22:00)
[2018-01-10] MEDS: Docusate CAP* 100 MG PO SCH ×2 (08:45→20:58)
[2018-01-10] MEDS: Atorvastatin* 20 MG TAB PO SCH (08:45)
[2018-01-10] MEDS: Clopidogrel TAB* 75 MG PO SCH (08:45)
[2018-01-10] MEDS: Aspirin 81 mg CHEW TAB* 81 MG TAB.CHEW PO SCH (08:45)
[2018-01-10] MEDS: Divalproex ER TAB(*) 250 MG PO SCH ×2 (08:45→20:58)
[2018-01-10] MEDS: Cefepime 1 GM in Dextrose(*) 1 GM/50 ML BAG IV SCH ×2 (08:46→19:53)
[2018-01-10] MEDS: Cholestyramine Resin* 4 GM POWDER PO SCH ×2 (08:46→20:59)
[2018-01-10] MEDS: Dakins Solution 0.25% (1/2 STR.)* 473 ML BTL TOPICAL SCH (08:46)
[2018-01-10] MEDS: Ursodiol CAP* 300 MG PO SCH (08:46)
[2018-01-10] MEDS: Nicotine PATCH 21 MG/24 HR* PATCH TRANSDERM SCH (08:51)
[2018-01-10] MEDS ORDERED: CMC Pantoprazole TAB (NF) 40 MG TAB PO SCH (09:00)
[2018-01-10] MEDS ORDERED: Vancomycin Trough Check NOTE FOLLOW UP ONE (11:30)
[2018-01-10] MEDS: NS 0.9% 1000 ML* 1,000 ML IV SCH (12:48)
--- NOTE | 2018-01-10 17:04 | RAD ---
HISTORY: Left calf pain COMPARISONS: None relevant TECHNIQUE: Multiple transverse and longitudinal ultrasound images were obtained of the left lower extremity from the level of the common femoral vein inferiorly through to the infrapopliteal veins using grayscale, color Doppler, and spectral Doppler imaging with and without compression and with augmentation. Comparison images were obtained of the contralateral common femoral vein. FINDINGS: VEINS: The venous system of the left lower extremity is compressible throughout its course, with normal flow on color Doppler imaging and normal response to augmentation on spectral Doppler imaging. SOFT TISSUES: Unremarkable. OTHER FINDINGS: There is calcific atherosclerotic disease. IMPRESSION: NO LEFT LOWER EXTREMITY DEEP VEIN THROMBOSIS
--- NOTE | 2018-01-10 18:23 | PN ---
Subjective Date of Service: 01/10/18 Interval History: c/o left lower calf pain with palpation. Denies chest pain or shortness of breath. Denies abd pain or n/v/d. denies fever or chills Family History: Unchanged from Admission Social History: Unchanged from Admission Past Medical History: Unchanged from Admission Objective Active Medications: Acetaminophen (Tylenol Tab*) 650 mg PO Q6H PRN PRN Reason: FEVER/PAIN Last Admin: 01/09/18 08:11 Dose: 650 mg Albuterol (Ventolin 2.5 Mg/3 Ml Neb.Alexa*) 2.5 mg INH Q2H PRN PRN Reason: SOB/WHEEZING Aspirin (Aspirin Low Dose Tab*) 81 mg PO DAILY [facility] Last Admin: 01/10/18 08:45 Dose: 81 mg Atorvastatin Calcium (Lipitor*) 20 mg PO DAILY [facility] Last Admin: 01/10/18 08:45 Dose: 20 mg Cholestyramine Resin (Questran*) 4 gm PO BID [facility] Last Admin: 01/10/18 08:46 Dose: 4 gm Clopidogrel Bisulfate (Plavix Tab*) 75 mg PO DAILY [facility] Last Admin: 01/10/18 08:45 Dose: 75 mg Divalproex Sodium (Depakote Er Tab(*)) 750 mg PO BID [facility] Last Admin: 01/10/18 08:45 Dose: 750 mg Docusate Sodium (Colace Cap*) 200 mg PO BID [facility] Last Admin: 01/10/18 08:45 Dose: 200 mg Heparin Sodium (Porcine) (Heparin Vial(*)) 5,000 units SUBCUT Q8HR [facility] Last Admin: 01/10/18 12:48 Dose: 5,000 units Hydralazine HCl (Apresoline Iv*) 10 mg IV Q4H PRN PRN Reason: Systolic >170 Last Admin: 01/10/18 00:32 Dose: 10 mg Sodium Chloride (Ns 0.9% 1000 Ml*) 1,000 mls @ 100 mls/hr IV PER RATE [facility] Last Admin: 01/10/18 12:48 Dose: 100 mls/hr Cefepime HCl (Maxipime 1 Gm In Dextrose Duplex (*)) 1 gm in 50 mls @ 100 mls/ hr IV Q12H [facility] Last Admin: 01/10/18 08:46 Dose: 100 mls/hr Vancomycin HCl 1,000 mg/ (Sodium Chloride) 250 mls @ 166.667 mls/hr IVPB Q8H [facility] Insulin Glargine (Lantus(*)) 5 units SUBCUT Q24H [facility] Last Admin: 01/09/18 20:41 Dose: 5 unit Insulin Human Lispro (Humalog*) 0 units SUBCUT ACHS [facility] PRN Reason: Protocol Last Admin: 01/10/18 17:11 Dose: 1 unit Melatonin (Melatonin (Nf)) 3 mg PO BEDTIME PRN; Protocol PRN Reason: Sleep Mometasone Furoate/Formoterol Fumar (Dulera 200/5 Mdi*) 2 puff INH BID [facility] Last Admin: 01/10/18 07:51 Dose: 2 puff Nicotine (Nicotine Patch 21 Mg/24 Hr*) 1 patch TRANSDERM DAILY [facility] Last Admin: 01/10/18 08:51 Dose: 1 patch Ondansetron HCl (Zofran Inj*) 4 mg IV Q6H PRN PRN Reason: NAUSEA Pantoprazole Sodium (Protonix Tab (Nf)) 40 mg PO DAILY@0600 [facility] Last Admin: 01/10/18 05:44 Dose: 40 mg Pharmacy Consult (Vancomycin Per Pharmacy*) 1 note FOLLOW UP .VANC PER PHARMACY [facility] Pharmacy Profile Note (Nicotine Patch Removal Note*) 1 note FOLLOW UP 2100 [facility] Last Admin: 01/09/18 20:50 Dose: 1 note Pharmacy Profile Note (Vancomycin Trough Check) 1 note FOLLOW UP ONCE ONE Stop: 01/12/18 11:31 Sodium Hypochlorite (Dakins Solution Half Stre) 1 applic TOPICAL DAILY [facility] Last Admin: 01/10/18 08:46 Dose: 1 applic Ursodiol (Actigall Cap*) 300 mg PO DAILY [facility] Last Admin: 01/10/18 08:46 Dose: 300 mg Vital Signs - 8 hr 01/10/18 01/10/18 11:31 16:07 Temperature 98.2 F 97.8 F Pulse Rate 66 63 Respiratory 16 20 Rate Blood Pressure 138/55 153/62 (mmHg) O2 Sat by Pulse 99 100 Oximetry Oxygen Devices in Use Now: None Appearance: appears comfortable resting in bed Eyes: No Scleral Icterus Ears/Nose/Mouth/Throat: Clear Oropharnyx, Mucous Membranes Moist Neck: NL Appearance and Movements; NL JVP, Trachea Midline Respiratory: Symmetrical Chest Expansion and Respiratory Effort, Clear to Auscultation Cardiovascular: NL Sounds; No Murmurs; No JVD Abdominal: NL Sounds; No Tenderness; No Distention Extremities: No Edema, No Clubbing, Cyanosis Skin: - - LLE with medium size open ulceration, with eschar tissue in the center of wound. left lower leg with purple discoloration. Neurological: Alert and Oriented x 3 Nutrition: Taking PO's Result Diagrams: 01/10/18 05:33 01/10/18 05:33 Microbiology and Other Data: Microbiology 01/09/18 04:35 Urine Culture - Final Urine No Growth (<1,000 CFU/mL) Assess/Plan/Problems-Billing Assessment: Mr. Au is a 67 yo male with a PMH of DM2, HLD, GERD who recently on 01/07 underwent a LLE revascularization procedure with Dr. 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 The next day 01/08 he developed progressive weakness and fell unable t get up. He was admitted for cellulitis and IV abx. - Patient Problems (1) Chronic ulcer of ankle Current Visit: Yes Status: Acute Code(s): L97.309 - NON-PRESSURE CHRONIC ULCER OF UNSP ANKLE WITH UNSP SEVERITY SNOMED Code(s): 822079674 Comment: - CRP mildly elevated on admission . Afebrile. No leukocytosis. No signs of sepsis. - s/p revascularization with Dr. Mckeon on 01/07; - follow-up in wound clinic at his scheduled appointment this week. -ID to consult to determine if he require long-term IV abx vs oral. - wound~ culture positive for MRSA- Will continue vanco and cefepime. ~blood cultures - no growth - Pt is a poor historian. - continue ASA, Plavix ~ c/o left calf pain ~ venous dopplar obtained~ negative for DVT (2) Diabetes 1.5, managed as type 2 Current Visit: Yes Status: Chronic Code(s): E10.9 - TYPE 1 DIABETES MELLITUS WITHOUT COMPLICATIONS SNOMED Code(s): 783749334 Comment: ~blood sugars 83-168 -Lantus 5 units QPM - FSBG ACHS (3) GERD (gastroesophageal reflux disease) Current Visit: No Status: Chronic Code(s): K21.9 - GASTRO-ESOPHAGEAL REFLUX DISEASE WITHOUT ESOPHAGITIS SNOMED Code(s): 700233921 Comment: continue protonix (4) HLD (hyperlipidemia) Current Visit: No Status: Chronic Code(s): E78.5 - HYPERLIPIDEMIA, UNSPECIFIED SNOMED Code(s): 18921666 Comment: continue statin (5) DVT prophylaxis Current Visit: Yes Status: Acute Code(s): UQY0658 - SNOMED Code(s): 259158469 Comment: HSQ (6) Full code status Current Visit: Yes Status: Acute Code(s): Z78.9 - OTHER SPECIFIED HEALTH STATUS SNOMED Code(s): 012064402 Status and Disposition: inpatient.
[2018-01-10] MEDS: Vancomycin(*) 1,000 MG in NS 0.9% 250 ML* 250 ML IVPB SCH (21:00)
[2018-01-10] MEDS: Insulin GLARGINE(*) 1 UNITS UNIT SUBCUT SCH (22:06)
[2018-01-10] MEDS: Nicotine Patch Removal NOTE FOLLOW UP SCH (22:12)
[2018-01-11] MEDS: NS 0.9% 1000 ML* 1,000 ML IV SCH (02:58)
[2018-01-11] MEDS: Vancomycin(*) 1,000 MG in NS 0.9% 250 ML* 250 ML IVPB SCH (03:38)
[2018-01-11] MEDS: Heparin VIAL(*) 5000 UNITS/ML VIAL (FIVE THOUSAND) SUBCUT SCH ×3 (05:05→21:43)
[2018-01-11] MEDS: CMCS:Pantoprazole TAB (NF) 40 MG TAB PO SCH (05:05)
[2018-01-11 06:06] LABS: EGFR Non-African American 102.3 (>60)
[2018-01-11] MEDS: Mometasone/Formoter 200/5 MDI INH SCH ×2 (07:30→19:29)
[2018-01-11] MEDS: Insulin LISPRO* 1 UNITS UNIT SUBCUT SCH ×4 (07:39→21:41)
[2018-01-11] MEDS: Cholestyramine Resin* 4 GM POWDER PO SCH ×2 (08:30→21:40)
[2018-01-11] MEDS: Nicotine PATCH 21 MG/24 HR* PATCH TRANSDERM SCH (08:31)
[2018-01-11] MEDS: Atorvastatin* 20 MG TAB PO SCH (08:32)
[2018-01-11] MEDS: Clopidogrel TAB* 75 MG PO SCH (08:33)
[2018-01-11] MEDS: Ursodiol CAP* 300 MG PO SCH (08:33)
[2018-01-11] MEDS: Aspirin 81 mg CHEW TAB* 81 MG TAB.CHEW PO SCH (08:33)
[2018-01-11] MEDS: Docusate CAP* 100 MG PO SCH ×2 (08:33→21:41)
[2018-01-11] MEDS: Divalproex ER TAB(*) 250 MG PO SCH ×2 (08:34→21:40)
[2018-01-11] MEDS: Cefepime 1 GM in Dextrose(*) 1 GM/50 ML BAG IV SCH (08:36)
[2018-01-11] MEDS: Dakins Solution 0.25% (1/2 STR.)* 473 ML BTL TOPICAL SCH (10:25)
[2018-01-11] MEDS: metroNIDAZOLE TAB* 250 MG PO SCH ×2 (11:22→21:40)
--- NOTE | 2018-01-11 14:20 | CONS ---
CONSULTATION REPORT: DATE OF CONSULT: 01/11/18 REQUESTING PROVIDER: Nita Blake NP CONSULTING SERVICE: Infectious Disease. REASON FOR CONSULTATION: Left lower leg ulcer. IMPRESSION: 1. Chronic left lower extremity non-pressure related ulceration with mild associated cellulitis and wound infection. Underlying etiology was vascular disease. 2. Peripheral vascular disease, status post angioplasty last week. 3. Diabetes. RECOMMENDATIONS: 1. Stop vancomycin and cefepime. 2. Start doxycycline 100 mg by mouth twice daily and Flagyl 500 mg by mouth twice a day, we plan on a 2-week course. 3. I do not recommend further imaging at this point. I do not think there is osteomyelitis. HISTORY OF PRESENT ILLNESS: This is a 67-year-old man with diabetes and vascular disease. He has had 3 to 4 months of left lower extremity ulceration that is on the medial lower extremity above the ankle, it is not over a bony prominence. He has been following with the wound clinic. Dr. Kamara has been debriding soft tissue that was necrotic over the last 3 months or so. He had a lower extremity vascular intervention last week, which apparently was successful. He had some falls at his long-term, so was sent to the hospital , transferred here, was concerning for infection in the left foot. He was put on vancomycin and cefepime. He had no fever here. He has had no chills or sweats. His appetite is good. No diarrhea. He has not noted much in the way of left foot pain. He thought there was a little bit soon after the procedure, but that since resolved. A culture swab was taken of the left leg wound on the that showed gram-positive cocci, gram- positive bacilli, gram-negative bacilli. It is growing MRSA and Corynebacterium. He has not noticed much in the way of an odor from the wound. His nurse when changing the dressing today did notice some slight odor. PAST MEDICAL HISTORY: 1. Diabetes. 2. Peripheral vascular disease, status post lower extremity angioplasty, December 2017. 3. Hyperlipidemia. 4. Gastroesophageal reflux disease. 5. Chronic left lower extremity wound. MEDICATIONS: 1. Tylenol. 2. Albuterol. 3. Aspirin. 4. Lipitor. 5. Cholestyramine. 6. Plavix. 7. Depakote. 8. Docusate. 9. Heparin subcutaneous injection. 10. Cefepime 1 g every 12 hours. 11. Melatonin. 12. Nicotine patch. 13. Pantoprazole. 14. Ursodiol. 15. Vancomycin. ALLERGIES: No known drug allergies. FAMILY HISTORY: No recurrent infections. SOCIAL HISTORY: He lives at [facility] in [place]. Has no travel or sick contacts. REVIEW OF SYSTEMS: A 14-point review of systems was negative except as noted above. PHYSICAL EXAM: Vital Signs: Temperature is 36.7, heart rate 50, respiratory rate 16, blood pressure 140/56, oxygen saturation 100% on room air. In general , he is awake, not in distress. Neurologic: He is oriented x3. Follows all commands. There is decreased sensation to light touch in both feet. HEENT: He is edentulous. No thrush. Neck: Supple without mass. Lymph Nodes: There is no cervical, supraclavicular, inguinal, axillary or epitrochlear lymphadenopathy. Heart is regular rate and rhythm without murmurs, rubs, or gallops. Lungs are clear to auscultation bilaterally. Abdomen: Soft, nontender, nondistended. There are bowel sounds present. Skin: There is no rash or splinter hemorrhages. Musculoskeletal: There is no spine tenderness to palpation. There is woody induration of both lower extremities with nonpalpable dorsalis pedis pulses, apparently they are dopplerable. There is a medial left lower leg wound above the ankle that is about 4 cm oblong with some necrotic debris in the center. There is mild surrounding erythema. There is no fluctuance, crepitus or drainage. There is a slightly foul odor. LABORATORY DATA: White blood cell count 9, hemoglobin 9, MCV is 96, platelets 173,000. Creatinine 0.7. Please see impressions and recommendations outlined above, which I have discussed with Nita Blake NP. Thank you for asking me to see Mr. Au in consultation. [id number]/[facility] #: [id number] CHELLY
--- NOTE | 2018-01-11 16:42 | RAD ---
INDICATION: Ulcer, cellulitis evaluate for osteomyelitis. COMPARISON: Comparison is made with a prior x-ray study of the left ankle from January 08, 2018. TECHNIQUE: Axial, sagittal and coronal T1 and T2-weighted images of the left ankle were obtained. FINDINGS: There is diffuse soft tissue swelling. There is a soft tissue defect at the level of the tibial metaphysis. The bones are normal in signal intensity. There is no evidence for erosive change or osteomyelitis. No fluid collection or abscess is seen. IMPRESSION: SOFT TISSUE SWELLING CONSISTENT WITH THE PATIENT'S HISTORY OF CELLULITIS, NO EVIDENCE FOR OSTEOMYELITIS OR ABSCESS.
--- NOTE | 2018-01-11 17:17 | PN ---
Subjective Date of Service: 01/11/18 Interval History: Patient states that his pain is improving. Denies chest pain or shortness of breath. Denies and pain, n/v/d. States that left calf pain is improving. Family History: Unchanged from Admission Social History: Unchanged from Admission Past Medical History: Unchanged from Admission Objective Active Medications: Acetaminophen (Tylenol Tab*) 650 mg PO Q6H PRN PRN Reason: FEVER/PAIN Last Admin: 01/09/18 08:11 Dose: 650 mg Albuterol (Ventolin 2.5 Mg/3 Ml Neb.Alexa*) 2.5 mg INH Q2H PRN PRN Reason: SOB/WHEEZING Aspirin (Aspirin Low Dose Tab*) 81 mg PO DAILY [facility] Last Admin: 01/11/18 08:33 Dose: 81 mg Atorvastatin Calcium (Lipitor*) 20 mg PO DAILY [facility] Last Admin: 01/11/18 08:32 Dose: 20 mg Cholestyramine Resin (Questran*) 4 gm PO BID [facility] Last Admin: 01/11/18 08:30 Dose: 4 gm Clopidogrel Bisulfate (Plavix Tab*) 75 mg PO DAILY [facility] Last Admin: 01/11/18 08:33 Dose: 75 mg Divalproex Sodium (Depakote Er Tab(*)) 750 mg PO BID [facility] Last Admin: 01/11/18 08:34 Dose: 750 mg Docusate Sodium (Colace Cap*) 200 mg PO BID [facility] Last Admin: 01/11/18 08:33 Dose: 200 mg Doxycycline Hyclate (Vibramycin Cap(*)) 100 mg PO BID [facility] Heparin Sodium (Porcine) (Heparin Vial(*)) 5,000 units SUBCUT Q8HR [facility] Last Admin: 01/11/18 14:07 Dose: 5,000 units Hydralazine HCl (Apresoline Iv*) 10 mg IV Q4H PRN PRN Reason: Systolic >170 Last Admin: 01/10/18 00:32 Dose: 10 mg Sodium Chloride (Ns 0.9% 1000 Ml*) 1,000 mls @ 100 mls/hr IV PER RATE [facility] Last Admin: 01/11/18 02:58 Dose: 100 mls/hr Insulin Glargine (Lantus(*)) 5 units SUBCUT Q24H [facility] Last Admin: 01/10/18 22:06 Dose: 5 unit Insulin Human Lispro (Humalog*) 0 units SUBCUT ACHS [facility] PRN Reason: Protocol Last Admin: 01/11/18 11:24 Dose: Not Given Melatonin (Melatonin (Nf)) 3 mg PO BEDTIME PRN; Protocol PRN Reason: Sleep Metronidazole (Flagyl Tab*) 500 mg PO BID [facility] Last Admin: 01/11/18 11:22 Dose: 500 mg Mometasone Furoate/Formoterol Fumar (Dulera 200/5 Mdi*) 2 puff INH BID [facility] Last Admin: 01/11/18 07:30 Dose: 2 puff Nicotine (Nicotine Patch 21 Mg/24 Hr*) 1 patch TRANSDERM DAILY [facility] Last Admin: 01/11/18 08:31 Dose: 1 patch Ondansetron HCl (Zofran Inj*) 4 mg IV Q6H PRN PRN Reason: NAUSEA Pantoprazole Sodium (Protonix Tab (Nf)) 40 mg PO DAILY@0600 [facility] Last Admin: 01/11/18 05:05 Dose: 40 mg Pharmacy Profile Note (Nicotine Patch Removal Note*) 1 note FOLLOW UP 2100 [facility] Last Admin: 01/10/18 22:12 Dose: 1 note Sodium Hypochlorite (Dakins Solution Half Stre) 1 applic TOPICAL DAILY [facility] Last Admin: 01/11/18 10:25 Dose: 1 applic Ursodiol (Actigall Cap*) 300 mg PO DAILY [facility] Last Admin: 01/11/18 08:33 Dose: 300 mg Vital Signs - 8 hr 01/11/18 01/11/18 01/11/18 11:45 11:48 15:26 Temperature 97.4 F 97.9 F Pulse Rate 55 57 Respiratory 18 16 Rate Blood Pressure 151/62 147/66 (mmHg) O2 Sat by Pulse 100 100 Oximetry Oxygen Devices in Use Now: None Appearance: appears comfortable resting in bed Eyes: No Scleral Icterus Ears/Nose/Mouth/Throat: Clear Oropharnyx, Mucous Membranes Moist Neck: NL Appearance and Movements; NL JVP, Trachea Midline Respiratory: Symmetrical Chest Expansion and Respiratory Effort, Clear to Auscultation Cardiovascular: NL Sounds; No Murmurs; No JVD, No Edema Abdominal: NL Sounds; No Tenderness; No Distention Extremities: No Edema, No Clubbing, Cyanosis Skin: - - brownish/ red discoloration to left lower leg. dresssing intact. mild swelling Neurological: Alert and Oriented x 3 Nutrition: Taking PO's Result Diagrams: 01/10/18 05:33 01/11/18 05:33 Microbiology and Other Data: Microbiology 01/09/18 04:35 Urine Culture - Final Urine No Growth (<1,000 CFU/mL) Assess/Plan/Problems-Billing Assessment: Mr. Au is a 67 yo male with a PMH of DM2, HLD, GERD who recently on 01/07 underwent a LLE revascularization procedure with Dr. 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 The next day 01/08 he developed progressive weakness and fell unable t get up. He was admitted for cellulitis and IV abx. - Patient Problems (1) Chronic ulcer of ankle Current Visit: Yes Status: Acute Code(s): L97.309 - NON-PRESSURE CHRONIC ULCER OF UNSP ANKLE WITH UNSP SEVERITY SNOMED Code(s): 880711449 Comment: - CRP mildly elevated on admission . Afebrile. No leukocytosis. No signs of sepsis. - s/p revascularization with Dr. Mckeon on 01/07; - follow-up in wound clinic at his scheduled appointment this week. -ID to consulted~ antibiotic changed to flagyl and doxycycline. - wound~ culture positive for MRSA- ~blood cultures - no growth - Pt is a poor historian. - continue ASA, Plavix ~ calf pain improving ~ MRI~ negative for osteomylitis (2) Diabetes 1.5, managed as type 2 Current Visit: Yes Status: Chronic Code(s): E10.9 - TYPE 1 DIABETES MELLITUS WITHOUT COMPLICATIONS SNOMED Code(s): 189753298 Comment: ~blood sugars 74-168 -Lantus 5 units QPM - FSBG ACHS (3) GERD (gastroesophageal reflux disease) Current Visit: No Status: Chronic Code(s): K21.9 - GASTRO-ESOPHAGEAL REFLUX DISEASE WITHOUT ESOPHAGITIS SNOMED Code(s): 748289984 Comment: continue protonix (4) HLD (hyperlipidemia) Current Visit: No Status: Chronic Code(s): E78.5 - HYPERLIPIDEMIA, UNSPECIFIED SNOMED Code(s): 36802656 Comment: continue statin (5) DVT prophylaxis Current Visit: Yes Status: Acute Code(s): BYP7320 - SNOMED Code(s): 966775552 Comment: HSQ (6) Full code status Current Visit: Yes Status: Acute Code(s): Z78.9 - OTHER SPECIFIED HEALTH STATUS SNOMED Code(s): 175158260 Status and Disposition: inpatient.
[2018-01-11] MEDS: DOXYcycline CAP(*) 100 MG PO SCH (21:40)
[2018-01-11] MEDS: Insulin GLARGINE(*) 1 UNITS UNIT SUBCUT SCH (21:41)
[2018-01-11] MEDS: Nicotine Patch Removal NOTE FOLLOW UP SCH (21:42)
[2018-01-12] MEDS: CMCS:Pantoprazole TAB (NF) 40 MG TAB PO SCH (05:53)
[2018-01-12] MEDS: Heparin VIAL(*) 5000 UNITS/ML VIAL (FIVE THOUSAND) SUBCUT SCH ×3 (05:55→21:56)
[2018-01-12 06:49] LABS: EGFR Non-African American 103.9 (>60)
[2018-01-12] MEDS: Insulin LISPRO* 1 UNITS UNIT SUBCUT SCH ×4 (07:49→21:39)
[2018-01-12] MEDS: Mometasone/Formoter 200/5 MDI INH SCH ×2 (08:30→19:14)
[2018-01-12] MEDS: Divalproex ER TAB(*) 250 MG PO SCH ×2 (09:22→21:55)
[2018-01-12] MEDS: metroNIDAZOLE TAB* 250 MG PO SCH ×2 (09:22→21:54)
[2018-01-12] MEDS: Aspirin 81 mg CHEW TAB* 81 MG TAB.CHEW PO SCH (09:22)
[2018-01-12] MEDS: Ursodiol CAP* 300 MG PO SCH (09:22)
[2018-01-12] MEDS: Clopidogrel TAB* 75 MG PO SCH (09:22)
[2018-01-12] MEDS: DOXYcycline CAP(*) 100 MG PO SCH ×2 (09:22→21:54)
[2018-01-12] MEDS: Docusate CAP* 100 MG PO SCH ×2 (09:22→21:55)
[2018-01-12] MEDS: Atorvastatin* 20 MG TAB PO SCH (09:23)
[2018-01-12] MEDS: Cholestyramine Resin* 4 GM POWDER PO SCH ×2 (09:25→21:53)
[2018-01-12] MEDS: Nicotine PATCH 21 MG/24 HR* PATCH TRANSDERM SCH (09:26)
[2018-01-12] MEDS: Dakins Solution 0.25% (1/2 STR.)* 473 ML BTL TOPICAL SCH (11:23)
[2018-01-12] MEDS ORDERED: Vancomycin Trough Check NOTE FOLLOW UP ONE (11:30)
--- NOTE | 2018-01-12 11:38 | PN ---
Subjective Date of Service: 01/12/18 Interval History: States that his left calf pain has resolved. Denies chest pain or shortness of breath. Denies abd pain n/v/d Family History: Unchanged from Admission Social History: Unchanged from Admission Past Medical History: Unchanged from Admission Objective Active Medications: Acetaminophen (Tylenol Tab*) 650 mg PO Q6H PRN PRN Reason: FEVER/PAIN Last Admin: 01/09/18 08:11 Dose: 650 mg Albuterol (Ventolin 2.5 Mg/3 Ml Neb.Alexa*) 2.5 mg INH Q2H PRN PRN Reason: SOB/WHEEZING Aspirin (Aspirin Low Dose Tab*) 81 mg PO DAILY [facility] Last Admin: 01/12/18 09:22 Dose: 81 mg Atorvastatin Calcium (Lipitor*) 20 mg PO DAILY [facility] Last Admin: 01/12/18 09:23 Dose: 20 mg Cholestyramine Resin (Questran*) 4 gm PO BID [facility] Last Admin: 01/12/18 09:25 Dose: 4 gm Clopidogrel Bisulfate (Plavix Tab*) 75 mg PO DAILY [facility] Last Admin: 01/12/18 09:22 Dose: 75 mg Divalproex Sodium (Depakote Er Tab(*)) 750 mg PO BID [facility] Last Admin: 01/12/18 09:22 Dose: 750 mg Docusate Sodium (Colace Cap*) 200 mg PO BID [facility] Last Admin: 01/12/18 09:22 Dose: 200 mg Doxycycline Hyclate (Vibramycin Cap(*)) 100 mg PO BID [facility] Last Admin: 01/12/18 09:22 Dose: 100 mg Heparin Sodium (Porcine) (Heparin Vial(*)) 5,000 units SUBCUT Q8HR [facility] Last Admin: 01/12/18 05:55 Dose: 5,000 units Hydralazine HCl (Apresoline Iv*) 10 mg IV Q4H PRN PRN Reason: Systolic >170 Last Admin: 01/10/18 00:32 Dose: 10 mg Insulin Glargine (Lantus(*)) 5 units SUBCUT Q24H [facility] Last Admin: 01/11/18 21:41 Dose: Not Given Insulin Human Lispro (Humalog*) 0 units SUBCUT ACHS [facility] PRN Reason: Protocol Last Admin: 01/12/18 07:49 Dose: Not Given Melatonin (Melatonin (Nf)) 3 mg PO BEDTIME PRN; Protocol PRN Reason: Sleep Metronidazole (Flagyl Tab*) 500 mg PO BID [facility] Last Admin: 01/12/18 09:22 Dose: 500 mg Mometasone Furoate/Formoterol Fumar (Dulera 200/5 Mdi*) 2 puff INH BID [facility] Last Admin: 01/12/18 08:30 Dose: 2 puff Nicotine (Nicotine Patch 21 Mg/24 Hr*) 1 patch TRANSDERM DAILY [facility] Last Admin: 01/12/18 09:26 Dose: 1 patch Ondansetron HCl (Zofran Inj*) 4 mg IV Q6H PRN PRN Reason: NAUSEA Pantoprazole Sodium (Protonix Tab (Nf)) 40 mg PO DAILY@0600 [facility] Last Admin: 01/12/18 05:53 Dose: 40 mg Pharmacy Profile Note (Nicotine Patch Removal Note*) 1 note FOLLOW UP 2100 [facility] Last Admin: 01/11/18 21:42 Dose: 1 note Sodium Hypochlorite (Dakins Solution Half Stre) 1 applic TOPICAL DAILY [facility] Last Admin: 01/12/18 11:23 Dose: 1 applic Ursodiol (Actigall Cap*) 300 mg PO DAILY [facility] Last Admin: 01/12/18 09:22 Dose: 300 mg Vital Signs - 8 hr 01/12/18 01/12/18 07:38 07:44 Pulse Rate 49 Respiratory 16 16 Rate Blood Pressure 138/53 (mmHg) O2 Sat by Pulse 100 Oximetry Oxygen Devices in Use Now: None Appearance: awake and alert, resting in bed appears comfortable Eyes: PERRLA Ears/Nose/Mouth/Throat: Clear Oropharnyx, Mucous Membranes Moist Neck: NL Appearance and Movements; NL JVP, Trachea Midline Respiratory: Symmetrical Chest Expansion and Respiratory Effort, Clear to Auscultation Cardiovascular: NL Sounds; No Murmurs; No JVD, No Edema Abdominal: NL Sounds; No Tenderness; No Distention Extremities: No Edema, No Clubbing, Cyanosis Skin: No Rash or Ulcers Neurological: Alert and Oriented x 3 Nutrition: Taking PO's Result Diagrams: 01/10/18 05:33 01/12/18 14:21 Microbiology and Other Data: Microbiology 01/09/18 04:35 Urine Culture - Final Urine No Growth (<1,000 CFU/mL) Assess/Plan/Problems-Billing Assessment: Mr. Au is a 67 yo male with a PMH of DM2, HLD, GERD who recently on 01/07 underwent a LLE revascularization procedure with Dr. 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 The next day 01/08 he developed progressive weakness and fell unable t get up. He was admitted for cellulitis and IV abx. - Patient Problems (1) Chronic ulcer of ankle Current Visit: Yes Status: Acute Code(s): L97.309 - NON-PRESSURE CHRONIC ULCER OF UNSP ANKLE WITH UNSP SEVERITY SNOMED Code(s): 301624850 Comment: - CRP mildly elevated on admission . Remains Afebrile. No leukocytosis. No signs of sepsis. - s/p revascularization with Dr. Mckeon on 01/07; surgical site without redness -ID to consulted~ antibiotic changed to flagyl and doxycycline. - wound~ culture positive for MRSA- ~blood cultures - no growth - Pt is a poor historian. - continue ASA, Plavix ~ calf pain resolved ~ MRI~ negative for osteomylitis (2) Diabetes 1.5, managed as type 2 Current Visit: Yes Status: Chronic Code(s): E10.9 - TYPE 1 DIABETES MELLITUS WITHOUT COMPLICATIONS SNOMED Code(s): 115452077 Comment: ~blood sugars 83-88 -Lantus 5 units QPM - FSBG ACHS (3) Hyponatremia Current Visit: Yes Status: Acute Code(s): E87.1 - HYPO-OSMOLALITY AND HYPONATREMIA SNOMED Code(s): 86642123 Comment: Admission Serum Sodium was 127, peak level 131 today sodium 121- urine random sodium, urine serum osmolality, TSH and uric acid ordered~ results pending ~ fluids restricted, IVF d/c'd repeat sodium at 1400 was 122~ will give sodium tablet 1 gm x1 and continue fluid restriction (4) Hypothyroid Current Visit: Yes Status: Acute Code(s): E03.9 - HYPOTHYROIDISM, UNSPECIFIED SNOMED Code(s): 70884371 Comment: TSH~ 10.36 Free T4 and T3 pending Will start levothyroxine 25 mcg po daily will need TSH rechecked in 4 to 6 weeks (5) GERD (gastroesophageal reflux disease) Current Visit: No Status: Chronic Code(s): K21.9 - GASTRO-ESOPHAGEAL REFLUX DISEASE WITHOUT ESOPHAGITIS SNOMED Code(s): 623035406 Comment: continue protonix (6) HLD (hyperlipidemia) Current Visit: No Status: Chronic Code(s): E78.5 - HYPERLIPIDEMIA, UNSPECIFIED SNOMED Code(s): 00066389 Comment: continue statin (7) DVT prophylaxis Current Visit: Yes Status: Acute Code(s): NRG8515 - SNOMED Code(s): 829789918 Comment: HSQ (8) Full code status Current Visit: Yes Status: Acute Code(s): Z78.9 - OTHER SPECIFIED HEALTH STATUS SNOMED Code(s): 935220563 Status and Disposition: inpatient.
--- NOTE | 2018-01-12 14:23 | PN ---
Progress Note - Progress Note Date of Service: 01/12/18 SOAP: Subjective: CC: leg wound HPI: 67 year old man with recent revascularization Left leg; wound anterior left leg has been there a few months, no pain, redness or drainage from wound; some odor yesterday which he thinks is improve. No fever, rash, or diarrhea. Appetite is good. Objective: Vital Signs Temp 36.7 C 01/12/18 03:13 Pulse 49 01/12/18 07:38 Resp 16 01/12/18 07:44 BP 138/53 01/12/18 07:38 Pulse Ox 100 01/12/18 07:38 Intake & Output 01/11/18 01/12/18 01/12/18 18:59 06:59 18:59 Intake Total 2635 1590 590 Output Total 1300 1425 950 Balance 1335 165 -360 Weight 184 lb 6.4 oz Intake: IV Fluids 835 10 NS (0.9%) 835 10 IVPB 60 ABX - CEFEPIME 60 Oral 1740 1580 590 Output: Urine 1300 1425 950 Other: # Bowel Movements 1 1 Estimated Stool Amount Large Large Gen:awake, no distress HEENT:PERRL, MMM Heart:RRR no murmur Lungs:CTA BL Abd:+BS NTND soft Skin: no rash MSK: Left lower extremity wound with surrounding edema and mild induration, no erythema or crepitus Laboratory Results - last 24 hr 01/11/18 01/11/18 01/12/18 17:21 21:38 06:12 Sodium 121 L Potassium 4.6 Chloride 97 L Carbon Dioxide 21 L Anion Gap 3 BUN 16 Creatinine 0.75 Est GFR ( Amer) 133.6 Est GFR (Non-Af Amer) 103.9 BUN/Creatinine Ratio 21.3 H Glucose 87 POC Glucose (mg/dL) 129 H 119 H Uric Acid 4.0 L Calcium 8.4 L TSH Free T4 Total T3 Ur Random Sodium 01/12/18 01/12/18 01/12/18 06:12 07:33 10:57 Sodium Potassium Chloride Carbon Dioxide Anion Gap BUN Creatinine Est GFR ( Amer) Est GFR (Non-Af Amer) BUN/Creatinine Ratio Glucose POC Glucose (mg/dL) 83 Uric Acid Cancelled Calcium TSH 10.36 H Free T4 0.73 Total T3 0.46 L Ur Random Sodium 97 01/12/18 11:37 Sodium Potassium Chloride Carbon Dioxide Anion Gap BUN Creatinine Est GFR ( Amer) Est GFR (Non-Af Amer) BUN/Creatinine Ratio Glucose POC Glucose (mg/dL) 87 Uric Acid Calcium TSH Free T4 Total T3 Ur Random Sodium Assessment: 1. left lower leg chronic non pressure related wound complicated by cellulitis and wound infection 2. PAD s/p angioplasty 3. diabetes with neuropathy 4. hyponatremia Plan: 1.doxycycline 100 mg po bid and flagyl 500 mg po bid for 2 weeks Discussed with Nita Blake CIVIL DESIGN SPECIALIST
[2018-01-12 14:47] LABS: EGFR Non-African American 86.4 (>60)
[2018-01-12] MEDS ORDERED: Sodium Chloride TAB* 1 GM PO ONE (17:08)
[2018-01-12] MEDS: Insulin GLARGINE(*) 1 UNITS UNIT SUBCUT SCH (21:53)
[2018-01-12] MEDS: CMCS:Melatonin (NF) 3 MG TAB PO PRN (21:54)
[2018-01-12] MEDS: Nicotine Patch Removal NOTE FOLLOW UP SCH (21:56)
[2018-01-13] MEDS: Acetaminophen TAB* 325 MG PO PRN (00:32)
[2018-01-13] MEDS: Heparin VIAL(*) 5000 UNITS/ML VIAL (FIVE THOUSAND) SUBCUT SCH ×3 (05:12→21:41)
[2018-01-13] MEDS: Levothyroxine TAB* 25 MCG TAB PO SCH (05:12)
[2018-01-13] MEDS: CMCS:Pantoprazole TAB (NF) 40 MG TAB PO SCH (05:12)
[2018-01-13 07:16] LABS: EGFR Non-African American 89.9 (>60)
[2018-01-13] MEDS: Mometasone/Formoter 200/5 MDI INH SCH ×2 (08:04→20:58)
[2018-01-13] MEDS: Cholestyramine Resin* 4 GM POWDER PO SCH ×2 (08:26→21:38)
[2018-01-13] MEDS: Insulin LISPRO* 1 UNITS UNIT SUBCUT SCH ×4 (08:27→21:50)
--- NOTE | 2018-01-13 09:23 | PN ---
Subjective Date of Service: 01/13/18 Interval History: No complaints, states that left leg pain is improving. Denies chest pain or shortness of breath. Denies n/v/d Family History: Unchanged from Admission Social History: Unchanged from Admission Past Medical History: Unchanged from Admission Objective Active Medications: Acetaminophen (Tylenol Tab*) 650 mg PO Q6H PRN PRN Reason: FEVER/PAIN Last Admin: 01/13/18 00:32 Dose: 650 mg Albuterol (Ventolin 2.5 Mg/3 Ml Neb.Alexa*) 2.5 mg INH Q2H PRN PRN Reason: SOB/WHEEZING Aspirin (Aspirin Low Dose Tab*) 81 mg PO DAILY [facility] Last Admin: 01/12/18 09:22 Dose: 81 mg Atorvastatin Calcium (Lipitor*) 20 mg PO DAILY [facility] Last Admin: 01/12/18 09:23 Dose: 20 mg Cholestyramine Resin (Questran*) 4 gm PO BID [facility] Last Admin: 01/13/18 08:26 Dose: 4 gm Clopidogrel Bisulfate (Plavix Tab*) 75 mg PO DAILY [facility] Last Admin: 01/12/18 09:22 Dose: 75 mg Divalproex Sodium (Depakote Er Tab(*)) 750 mg PO BID [facility] Last Admin: 01/12/18 21:55 Dose: 750 mg Docusate Sodium (Colace Cap*) 200 mg PO BID [facility] Last Admin: 01/12/18 21:55 Dose: 200 mg Doxycycline Hyclate (Vibramycin Cap(*)) 100 mg PO BID [facility] Last Admin: 01/12/18 21:54 Dose: 100 mg Heparin Sodium (Porcine) (Heparin Vial(*)) 5,000 units SUBCUT Q8HR [facility] Last Admin: 01/13/18 05:12 Dose: 5,000 units Hydralazine HCl (Apresoline Iv*) 10 mg IV Q4H PRN PRN Reason: Systolic >170 Last Admin: 01/10/18 00:32 Dose: 10 mg Insulin Glargine (Lantus(*)) 5 units SUBCUT Q24H [facility] Last Admin: 01/12/18 21:53 Dose: 5 unit Insulin Human Lispro (Humalog*) 0 units SUBCUT ACHS [facility] PRN Reason: Protocol Last Admin: 01/13/18 08:27 Dose: Not Given Levothyroxine Sodium (Synthroid Tab*) 25 mcg PO DAILY@0600 [facility] Last Admin: 01/13/18 05:12 Dose: 25 mcg Melatonin (Melatonin (Nf)) 3 mg PO BEDTIME PRN; Protocol PRN Reason: Sleep Last Admin: 01/12/18 21:54 Dose: 3 mg Metronidazole (Flagyl Tab*) 500 mg PO BID [facility] Last Admin: 01/12/18 21:54 Dose: 500 mg Mometasone Furoate/Formoterol Fumar (Dulera 200/5 Mdi*) 2 puff INH BID [facility] Last Admin: 01/13/18 08:04 Dose: 2 puff Nicotine (Nicotine Patch 21 Mg/24 Hr*) 1 patch TRANSDERM DAILY [facility] Last Admin: 01/12/18 09:26 Dose: 1 patch Ondansetron HCl (Zofran Inj*) 4 mg IV Q6H PRN PRN Reason: NAUSEA Pantoprazole Sodium (Protonix Tab (Nf)) 40 mg PO DAILY@0600 [facility] Last Admin: 01/13/18 05:12 Dose: 40 mg Pharmacy Profile Note (Nicotine Patch Removal Note*) 1 note FOLLOW UP 2100 [facility] Last Admin: 01/12/18 21:56 Dose: 1 note Sodium Chloride (Sodium Chloride Tab*) 1 gm PO DAILY [facility] Sodium Hypochlorite (Dakins Solution Half Stre) 1 applic TOPICAL DAILY [facility] Last Admin: 01/12/18 11:23 Dose: 1 applic Ursodiol (Actigall Cap*) 300 mg PO DAILY [facility] Last Admin: 01/12/18 09:22 Dose: 300 mg Vital Signs - 8 hr 01/13/18 01/13/18 01/13/18 03:05 07:51 08:06 Temperature 98.5 F 98.4 F Pulse Rate 58 51 55 Respiratory 18 18 14 Rate Blood Pressure 129/62 125/60 (mmHg) O2 Sat by Pulse 95 98 97 Oximetry Oxygen Devices in Use Now: None Appearance: appears comfortable resting in bed Eyes: No Scleral Icterus Ears/Nose/Mouth/Throat: Clear Oropharnyx, Mucous Membranes Moist Neck: NL Appearance and Movements; NL JVP, Trachea Midline Respiratory: Symmetrical Chest Expansion and Respiratory Effort, Clear to Auscultation Cardiovascular: NL Sounds; No Murmurs; No JVD, No Edema Abdominal: NL Sounds; No Tenderness; No Distention Extremities: No Edema, No Clubbing, Cyanosis Skin: - - left lower with ulcer to medial aspect of the left lower leg, dressing intact , surrounding skin without redness, left lower leg with brownish discoloration. Neurological: Alert and Oriented x 3 Nutrition: Taking PO's Result Diagrams: 01/10/18 05:33 01/13/18 06:22 Microbiology and Other Data: Microbiology 01/09/18 04:35 Urine Culture - Final Urine No Growth (<1,000 CFU/mL) Assess/Plan/Problems-Billing Assessment: Mr. Au is a 67 yo male with a PMH of DM2, HLD, GERD who recently on 01/07 underwent a LLE revascularization procedure with Dr. 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 The next day 01/08 he developed progressive weakness and fell unable t get up. He was admitted for cellulitis and IV abx. - Patient Problems (1) Chronic ulcer of ankle Current Visit: Yes Status: Acute Code(s): L97.309 - NON-PRESSURE CHRONIC ULCER OF UNSP ANKLE WITH UNSP SEVERITY SNOMED Code(s): 620327715 Comment: ~ Remains Afebrile. No leukocytosis. No signs of sepsis. - s/p revascularization with Dr. Mckeon on 01/07; surgical site without redness -ID to consulted~ antibiotic changed to flagyl and doxycycline for total of 14 days. - wound~ culture positive for MRSA- continue daily dresssing changes with dakins solution 1/2 strenght~ dressing with a small amount of purlent drainage. ~blood cultures - no growth - continue ASA, Plavix ~ calf pain resolved ~ MRI~ negative for osteomylitis (2) Diabetes 1.5, managed as type 2 Current Visit: Yes Status: Chronic Code(s): E10.9 - TYPE 1 DIABETES MELLITUS WITHOUT COMPLICATIONS SNOMED Code(s): 216139682 Comment: ~blood sugars 95 -Lantus 5 units QPM - FSBG ACHS (3) Hyponatremia Current Visit: Yes Status: Acute Code(s): E87.1 - HYPO-OSMOLALITY AND HYPONATREMIA SNOMED Code(s): 47838564 Comment: Sodium 122~ will give sodium tablet 1 gm and continue fluid restriction TSH 10.36 yesterday Urine Random sodium 97 Repeat BMP in AM (4) Hypothyroid Current Visit: Yes Status: Acute Code(s): E03.9 - HYPOTHYROIDISM, UNSPECIFIED SNOMED Code(s): 75379784 Comment: TSH~ 10.36 Free T4 ~wnl T3~ 0.46 Will start levothyroxine 25 mcg po daily will need TSH rechecked in 4 to 6 weeks (5) GERD (gastroesophageal reflux disease) Current Visit: No Status: Chronic Code(s): K21.9 - GASTRO-ESOPHAGEAL REFLUX DISEASE WITHOUT ESOPHAGITIS SNOMED Code(s): 226032340 Comment: continue protonix (6) HLD (hyperlipidemia) Current Visit: No Status: Chronic Code(s): E78.5 - HYPERLIPIDEMIA, UNSPECIFIED SNOMED Code(s): 54228448 Comment: continue statin (7) History of seizures Current Visit: Yes Status: Acute Code(s): Z87.898 - PERSONAL HISTORY OF OTHER SPECIFIED CONDITIONS SNOMED Code(s): 394773329 Comment: Continue depakote Consulted Neurology for recommendations on Seizure medication~ possibly causing hyponatremia (8) DVT prophylaxis Current Visit: Yes Status: Acute Code(s): EKI6434 - SNOMED Code(s): 183259597 Comment: HSQ (9) Full code status Current Visit: Yes Status: Acute Code(s): Z78.9 - OTHER SPECIFIED HEALTH STATUS SNOMED Code(s): 870917395 Status and Disposition: inpatient. Discharge to rehab when able
[2018-01-13] MEDS: Nicotine PATCH 21 MG/24 HR* PATCH TRANSDERM SCH (09:48)
[2018-01-13] MEDS: Atorvastatin* 20 MG TAB PO SCH (09:49)
[2018-01-13] MEDS: Dakins Solution 0.25% (1/2 STR.)* 473 ML BTL TOPICAL SCH (09:49)
[2018-01-13] MEDS: Docusate CAP* 100 MG PO SCH ×2 (09:50→21:39)
[2018-01-13] MEDS: Clopidogrel TAB* 75 MG PO SCH (09:50)
[2018-01-13] MEDS: Divalproex ER TAB(*) 250 MG PO SCH ×2 (09:50→21:38)
[2018-01-13] MEDS: DOXYcycline CAP(*) 100 MG PO SCH ×2 (09:50→21:39)
[2018-01-13] MEDS: Aspirin 81 mg CHEW TAB* 81 MG TAB.CHEW PO SCH (09:51)
[2018-01-13] MEDS: metroNIDAZOLE TAB* 250 MG PO SCH ×2 (09:51→21:39)
[2018-01-13] MEDS: Ursodiol CAP* 300 MG PO SCH (09:51)
[2018-01-13] MEDS: Sodium Chloride TAB* 1 GM PO SCH (10:44)
[2018-01-13] MEDS: Insulin GLARGINE(*) 1 UNITS UNIT SUBCUT SCH (21:50)
[2018-01-13] MEDS: Nicotine Patch Removal NOTE FOLLOW UP SCH (21:51)
[2018-01-14] MEDS: Acetaminophen TAB* 325 MG PO PRN (00:34)
[2018-01-14] MEDS: CMCS:Melatonin (NF) 3 MG TAB PO PRN (00:35)
[2018-01-14] MEDS: CMCS:Pantoprazole TAB (NF) 40 MG TAB PO SCH (05:31)
[2018-01-14] MEDS: Levothyroxine TAB* 25 MCG TAB PO SCH (05:31)
[2018-01-14] MEDS: Heparin VIAL(*) 5000 UNITS/ML VIAL (FIVE THOUSAND) SUBCUT SCH ×3 (05:32→21:18)
[2018-01-14 06:27] LABS: ABS Basophils 0.1 10^3/ul (0-0.2); ABS Eosinophils 0.5 10^3/ul (0-0.6); ABS Lymphocytes 2.5 10^3/ul (1.0-4.8); ABS Neutrophils 5.6 10^3/ul (1.5-7.7); ABS Nucleated RBC 0 10^3/ul; Eosinophil % 5.1 % (0-6); Hematocrit 26 % (42-52); Hemoglobin 9.3 g/dl (14.0-18.0); Lymphocyte % 25.9 % (25-47); Mean Corpuscular HGB Conc 35 g/dl (31-36); Mean Corpuscular Hemoglobin 34 pg (27-31); Mean Corpuscular Volume 95 fL (80-94); Mean Platelet Volume 7 um3 (7.4-10.4); Nucleated Red Blood Cells % 0.1; Platelet Count 217 10^3/ul (150-450); Red Blood Count 2.76 10^6/ul (4.0-5.4); Red Cell Distribution Width 15 % (10.5-15); White Blood Count 9.7 10^3/ul (3.5-10.8)
[2018-01-14 06:46] LABS: EGFR Non-African American 87.5 (>60)
[2018-01-14] MEDS: Mometasone/Formoter 200/5 MDI INH SCH ×2 (07:44→19:38)
[2018-01-14] MEDS: Insulin LISPRO* 1 UNITS UNIT SUBCUT SCH ×4 (08:22→21:19)
--- NOTE | 2018-01-14 09:21 | PN ---
Subjective Date of Service: 01/14/18 Interval History: Patient seen and examined at bedside. Denies fever, chills, shortness of breath , chest discomfort, N/V/D. Pt states that the pain in his left LLE is improving. He also feels like his weakness is improving. Family History: Unchanged from Admission Social History: Unchanged from Admission Past Medical History: Unchanged from Admission Objective Active Medications: Acetaminophen (Tylenol Tab*) 650 mg PO Q6H PRN Reason: FEVER/PAIN Albuterol (Ventolin 2.5 Mg/3 Ml Neb.Alexa*) 2.5 mg INH Q2H PRN Reason: SOB/ WHEEZING Aspirin (Aspirin Low Dose Tab*) 81 mg PO DAILY [facility] Atorvastatin Calcium (Lipitor*) 20 mg PO DAILY [facility] Cholestyramine Resin (Questran*) 4 gm PO BID [facility] Clopidogrel Bisulfate (Plavix Tab*) 75 mg PO DAILY [facility] Divalproex Sodium (Depakote Er Tab(*)) 750 mg PO BID [facility] Docusate Sodium (Colace Cap*) 200 mg PO BID [facility] Doxycycline Hyclate (Vibramycin Cap(*)) 100 mg PO BID [facility] Heparin Sodium (Porcine) (Heparin Vial(*)) 5,000 units SUBCUT Q8HR [facility] Hydralazine HCl (Apresoline Iv*) 10 mg IV Q4H PRN Reason: Systolic >170 Insulin Glargine (Lantus(*)) 5 units SUBCUT Q24H [facility] Insulin Human Lispro (Humalog*) 0 units SUBCUT ACHS [facility] Levothyroxine Sodium (Synthroid Tab*) 25 mcg PO DAILY@0600 [facility] Melatonin (Melatonin (Nf)) 3 mg PO BEDTIME PRN Reason: Sleep Metronidazole (Flagyl Tab*) 500 mg PO BID [facility] Mometasone Furoate/Formoterol Fumar (Dulera 200/5 Mdi*) 2 puff INH BID [facility] Nicotine (Nicotine Patch 21 Mg/24 Hr*) 1 patch TRANSDERM DAILY [facility] Ondansetron HCl (Zofran Inj*) 4 mg IV Q6H PRN Reason: NAUSEA Pantoprazole Sodium (Protonix Tab (Nf)) 40 mg PO DAILY@0600 [facility] Pharmacy Profile Note (Nicotine Patch Removal Note*) 1 note FOLLOW UP 2100 [facility] Sodium Chloride (Sodium Chloride Tab*) 1 gm PO DAILY [facility] Sodium Hypochlorite (Dakins Solution Half Stre) 1 applic TOPICAL DAILY [facility] Ursodiol (Actigall Cap*) 300 mg PO DAILY [facility] Vital Signs - 8 hr 01/14/18 01/14/18 03:47 07:47 Pulse Rate 50 52 Respiratory 17 16 Rate Blood Pressure 137/62 (mmHg) O2 Sat by Pulse 97 97 Oximetry Oxygen Devices in Use Now: None Appearance: NAD, laying in bed Ears/Nose/Mouth/Throat: Mucous Membranes Moist Respiratory: Symmetrical Chest Expansion and Respiratory Effort, Clear to Auscultation Cardiovascular: RRR, - - Systolic murmur heard best at the left upper sternal border Abdominal: NL Sounds; No Tenderness; No Distention Skin: - - Arterial ulcer to left LE. Left groin cath site benign. Neurological: Alert and Oriented x 3, NL Muscle Strength and Tone Lines/Tubes/Other Access: Clean, Dry and Intact Peripheral IV - site benign Nutrition: Taking PO's Result Diagrams: 01/14/18 05:58 01/14/18 05:58 Additional Lab and Data: Left medial ankle 01/14/18 Microbiology and Other Data: Microbiology 01/09/18 04:35 Urine Culture - Final Urine No Growth (<1,000 CFU/mL) Assess/Plan/Problems-Billing Assessment: Mr. Au is a 67 yo male with a PMH of DM2, HLD, GERD who recently on 01/07 underwent a LLE revascularization procedure with Dr. 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 The next day 01/08 he developed progressive weakness and fell unable to get up. He was admitted for cellulitis and IV abx. - Patient Problems (1) Chronic ulcer of ankle Code(s): L97.309 - NON-PRESSURE CHRONIC ULCER OF UNSP ANKLE WITH UNSP SEVERITY SNOMED Code(s): 388591617 Comment: - Afebrile and no leukocytosis. No signs of sepsis. - s/p revascularization with Dr. Mckeon on 01/07; surgical site without redness - Blood cultures, no growth day 5 - MRI, negative for osteomylitis - ID consult, input appreciated - Wound culture positive for MRSA - Continue daily dresssing changes with dakins solution 1/2 strength - Continue ASA, plavix, flagyl and doxycycline for total of 14 days (2) Hyponatremia Code(s): E87.1 - HYPO-OSMOLALITY AND HYPONATREMIA SNOMED Code(s): 38790762 Comment: - Sodium 123 - Urine Random sodium 97 - Suspect secondary to SIADH and depakote - Continue sodium tablet 1 gm and continue fluid restriction (3) Weakness Code(s): R53.1 - WEAKNESS SNOMED Code(s): 91957351 Comment: - Normal neuro exam - Supect LLE weakness/pain is secondary to reperfusion pain - Encourage OOB and continue PT (4) Diabetes 1.5, managed as type 2 Code(s): E10.9 - TYPE 1 DIABETES MELLITUS WITHOUT COMPLICATIONS SNOMED Code(s) : 687738326 Comment: - Glucose 70-140's - Continue Lantus (5) History of seizures Code(s): Z87.898 - PERSONAL HISTORY OF OTHER SPECIFIED CONDITIONS SNOMED Code( s): 579780953 Comment: - Neurology consult, pending for recommendations on Seizure medication ( Depakote possibly causing hyponatremia) - Continue depakote (6) Hypothyroid Code(s): E03.9 - HYPOTHYROIDISM, UNSPECIFIED SNOMED Code(s): 20189559 Comment: - TSH 10.36, Free T4 wnl, T3 0.46 - Continue levothyroxine - Recheck TSH in 4 to 6 weeks (7) GERD (gastroesophageal reflux disease) Code(s): K21.9 - GASTRO-ESOPHAGEAL REFLUX DISEASE WITHOUT ESOPHAGITIS SNOMED Code(s): 893065643 Comment: - Continue protonix (8) HLD (hyperlipidemia) Code(s): E78.5 - HYPERLIPIDEMIA, UNSPECIFIED SNOMED Code(s): 04958678 Comment: - Continue statin (9) DVT prophylaxis Code(s): VVG3335 - SNOMED Code(s): 882410746 Comment: - HSQ (10) Full code status Code(s): Z78.9 - OTHER SPECIFIED HEALTH STATUS SNOMED Code(s): 220919137 Status and Disposition: Inpatient. Plan for discharge to [facility] in the AM.
[2018-01-14] MEDS: Nicotine PATCH 21 MG/24 HR* PATCH TRANSDERM SCH (09:32)
[2018-01-14] MEDS: Cholestyramine Resin* 4 GM POWDER PO SCH ×2 (09:32→21:13)
[2018-01-14] MEDS: Sodium Chloride TAB* 1 GM PO SCH (09:32)
[2018-01-14] MEDS: Ursodiol CAP* 300 MG PO SCH (09:33)
[2018-01-14] MEDS: Atorvastatin* 20 MG TAB PO SCH (09:33)
[2018-01-14] MEDS: metroNIDAZOLE TAB* 250 MG PO SCH ×2 (09:33→21:18)
[2018-01-14] MEDS: Clopidogrel TAB* 75 MG PO SCH (09:33)
[2018-01-14] MEDS: Aspirin 81 mg CHEW TAB* 81 MG TAB.CHEW PO SCH (09:33)
[2018-01-14] MEDS: Divalproex ER TAB(*) 250 MG PO SCH (09:33)
[2018-01-14] MEDS: Dakins Solution 0.25% (1/2 STR.)* 473 ML BTL TOPICAL SCH (09:33)
[2018-01-14] MEDS: DOXYcycline CAP(*) 100 MG PO SCH ×2 (09:33→21:17)
[2018-01-14] MEDS: Docusate CAP* 100 MG PO SCH ×2 (09:33→21:18)
[2018-01-14] MEDS ORDERED: Polyethylene Glycol 3350* 17 GM PACKET PO PRN (15:21)
[2018-01-14] MEDS ORDERED: Magnesium Hydroxide LIQ* 30 ML UDC PO PRN (15:21)
[2018-01-14] MEDS ORDERED: Divalproex ER TAB(*) 500 MG PO SCH (21:00)
[2018-01-14] MEDS: levETIRAcetam TAB* 500 MG PO SCH (21:14)
[2018-01-14] MEDS: Insulin GLARGINE(*) 1 UNITS UNIT SUBCUT SCH (21:18)
[2018-01-14] MEDS: Nicotine Patch Removal NOTE FOLLOW UP SCH (21:24)
--- NOTE | 2018-01-14 22:17 | CONS ---
NEUROLOGY CONSULTATION: DATE OF CONSULT: 01/14/18 LOCATION: He is an inpatient in room 415. REFERRING PROVIDER: Nanci Casillas NP CHIEF COMPLAINT: Hyponatremia. HISTORY OF PRESENT ILLNESS: Amilcar Au is a 67-year-old man, who was admitted on 01/08/18 with a fall and weakness. He has chronic medical problems and underwent an arterial procedure in his left leg because of nonhealing wounds. A couple of days later, he fell. He was unable to get up, so he was brought to the hospital and admitted. He was diagnosed as having cellulitis and was admitted for antibiotic treatment. During this hospitalization, he has been consistently hyponatremic. Sodium tablets were started recently. I was asked to see him regarding the possibility of Depakote causing his hyponatremia. He reports he has had seizures since he was young. He remembers being on phenobarbital. He states ever since he has been on Depakote, he has not had any seizures. He is not a very good historian and does not remember how long he has been on it or when his last seizure was. PAST MEDICAL HISTORY: Notable for peripheral vascular disease, epilepsy, gastroesophageal reflux, and diabetes. MEDICATIONS: At admission were: 1. Depakote extended release 1500 mg p.o. q.h.s. 2. Insulin. 3. Pantoprazole 40 mg p.o. q. day. 4. Plavix 75 mg p.o. q. day. 5. Questran 4 g p.o. b.i.d. 6. Atorvastatin 20 mg p.o. q. day. 7. Vitamin D. ALLERGIES: He does not have any drug allergies. REVIEW OF SYSTEMS: He still smokes. He does not drink alcohol. He is going to be going to either rehab or intermediate from here. No history of coronary artery disease. No history of stroke. He has chronic pain and limited range of motion about the right shoulder. He states he gets luke and irritable at times. PHYSICAL EXAM: He is very thin gentleman, who looks chronically ill. Temperature most recently 97.7 orally, blood pressure 143/64, heart rate in the 50s, respiratory rate is 17, and oxygen saturation is 97% on room air. Heart is in a regular rhythm. There is a grade 2/6 early systolic murmur upper right sternal border. There are no cervical bruits. There is limited range of motion about the right shoulder. Neurologic Exam: Eye movements are full. Facial musculature is symmetric with grade 1 hypomimia. Speech is generally clear. He has a tremor in the outstretched hands. He has good strength in the left arm, but the right is limited. He has antigravity strength in both legs. He is alert and a fair historian. He recalls some historical details, but not very well. Language is generally fluent. LABORATORY DATA: Includes his chemistries with a sodium of 123 most recently, it was 124 back in November. It has never been above 130 over about 10 different measurements. Glucose 111 today by fingerstick. CBC notable for white blood cell count of 9.7, hemoglobin 9.3, platelets are 217,000. Liver enzymes on 01/08/18 are normal. IMPRESSION AND PLAN: Impression is that of hyponatremia, which could be from Depakote. He has been seizure-free on it as best as I can tell from his history. I think it is reasonable to switch his Depakote. There is some risk of inducing a seizure and of course, there is also a risk of different side-effect profile. I recommend Keppra as it does not interact with any other medications ; he is on several. It usually does not cause hyponatremia either. I have explained to the patient my recommendation, he agrees. I told him that Keppra can cause moodiness and irritability and if he starts feeling bad to let us know. I would recommend starting 250 mg twice per day and start to cut his Depakote back to 1000 mg at bedtime, currently he is on 1500 mg. It should be tapered slowly over at least a month or two. His Keppra could be increased to 500 mg twice per day in a couple of weeks. I would be happy to see him in followup in my office. [id number]/[facility] #: [id number] [facility]
[2018-01-15] MEDS: CMCS:Pantoprazole TAB (NF) 40 MG TAB PO SCH (05:23)
[2018-01-15] MEDS: Heparin VIAL(*) 5000 UNITS/ML VIAL (FIVE THOUSAND) SUBCUT SCH (05:23)
[2018-01-15] MEDS: Levothyroxine TAB* 25 MCG TAB PO SCH (05:23)
[2018-01-15 07:07] LABS: ABS Basophils 0.1 10^3/ul (0-0.2); ABS Eosinophils 0.5 10^3/ul (0-0.6); ABS Lymphocytes 2.7 10^3/ul (1.0-4.8); ABS Monocytes 1.2 10^3/ul (0-0.8); ABS Neutrophils 6.2 10^3/ul (1.5-7.7); ABS Nucleated RBC 0 10^3/ul; Eosinophil % 4.7 % (0-6); Hematocrit 29 % (42-52); Hemoglobin 9.8 g/dl (14.0-18.0); Lymphocyte % 25.2 % (25-47); Mean Corpuscular HGB Conc 34 g/dl (31-36); Mean Corpuscular Hemoglobin 33 pg (27-31); Mean Corpuscular Volume 97 fL (80-94); Mean Platelet Volume 7 um3 (7.4-10.4); Nucleated Red Blood Cells % 0; Platelet Count 259 10^3/ul (150-450); Red Blood Count 2.98 10^6/ul (4.0-5.4); Red Cell Distribution Width 15 % (10.5-15); White Blood Count 10.7 10^3/ul (3.5-10.8)
--- NOTE | 2018-01-15 08:05 | PN ---
Subjective Date of Service: 01/15/18 Interval History: Patient seen and examined at bedside. Denies fever, chills, shortness of breath , chest discomfort, N/V/D. Family History: Unchanged from Admission Social History: Unchanged from Admission Past Medical History: Unchanged from Admission Objective Active Medications: Acetaminophen (Tylenol Tab*) 650 mg PO Q6H PRN Reason: FEVER/PAIN Albuterol (Ventolin 2.5 Mg/3 Ml Neb.Alexa*) 2.5 mg INH Q2H PRN Reason: SOB/ WHEEZING Aspirin (Aspirin Low Dose Tab*) 81 mg PO DAILY [facility] Atorvastatin Calcium (Lipitor*) 20 mg PO DAILY [facility] Cholestyramine Resin (Questran*) 4 gm PO BID [facility] Clopidogrel Bisulfate (Plavix Tab*) 75 mg PO DAILY [facility] Divalproex Sodium (Depakote Er Tab(*)) 1,000 mg PO BEDTIME [facility] Docusate Sodium (Colace Cap*) 200 mg PO BID [facility] Doxycycline Hyclate (Vibramycin Cap(*)) 100 mg PO BID [facility] Heparin Sodium (Porcine) (Heparin Vial(*)) 5,000 units SUBCUT Q8HR [facility] Hydralazine HCl (Apresoline Iv*) 10 mg IV Q4H PRN Reason: Systolic >170 Insulin Glargine (Lantus(*)) 5 units SUBCUT Q24H [facility] Insulin Human Lispro (Humalog*) 0 units SUBCUT ACHS [facility] Levetiracetam (Keppra Tab*) 250 mg PO BID [facility] Levothyroxine Sodium (Synthroid Tab*) 25 mcg PO DAILY@0600 [facility] Magnesium Hydroxide (Milk Of Magnesia Liq*) 30 ml PO Q6H PRN Reason: CONSTIPATION Melatonin (Melatonin (Nf)) 3 mg PO BEDTIME PRN; Protocol Reason: Sleep Metronidazole (Flagyl Tab*) 500 mg PO BID [facility] Mometasone Furoate/Formoterol Fumar (Dulera 200/5 Mdi*) 2 puff INH BID [facility] Nicotine (Nicotine Patch 21 Mg/24 Hr*) 1 patch TRANSDERM DAILY [facility] Ondansetron HCl (Zofran Inj*) 4 mg IV Q6H PRN Reason: NAUSEA Pantoprazole Sodium (Protonix Tab (Nf)) 40 mg PO DAILY@0600 [facility] Pharmacy Profile Note (Nicotine Patch Removal Note*) 1 note FOLLOW UP 2100 [facility] Polyethylene Glycol/Electrolytes (Miralax*) 17 gm PO DAILY PRN Reason: CONSTIPATION Sodium Chloride (Sodium Chloride Tab*) 1 gm PO DAILY [facility] Sodium Hypochlorite (Dakins Solution Half Stre) 1 applic TOPICAL DAILY [facility] Ursodiol (Actigall Cap*) 300 mg PO DAILY [facility] Vital Signs - 8 hr 01/15/18 01/15/18 01:20 02:54 Temperature 97.9 F Pulse Rate 54 57 Respiratory 16 20 Rate Blood Pressure 135/63 (mmHg) O2 Sat by Pulse 99 95 Oximetry Oxygen Devices in Use Now: None Appearance: NAD, laying in bed Ears/Nose/Mouth/Throat: Mucous Membranes Moist Respiratory: Symmetrical Chest Expansion and Respiratory Effort, Clear to Auscultation Cardiovascular: NL Sounds; No Murmurs; No JVD, RRR Abdominal: NL Sounds; No Tenderness; No Distention Extremities: No Edema Skin: - - Dressing to left lower leg clean, dry and intact. Dressing to left groin clean, dry and intact. Neurological: Alert and Oriented x 3, NL Muscle Strength and Tone Lines/Tubes/Other Access: Clean, Dry and Intact Peripheral IV - site benign Nutrition: Taking PO's Result Diagrams: 01/15/18 06:45 01/14/18 05:58 Additional Lab and Data: Left medial ankle 01/14/18 Microbiology and Other Data: Microbiology 01/09/18 04:35 Urine Culture - Final Urine No Growth (<1,000 CFU/mL) Assess/Plan/Problems-Billing Assessment: Mr. Au is a 67 yo male with a PMH of DM2, HLD, GERD who recently on 01/07 underwent a LLE revascularization procedure with Dr. 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 The next day 01/08 he developed progressive weakness and fell unable to get up. He was admitted for cellulitis and IV abx. - Patient Problems (1) Chronic ulcer of ankle Code(s): L97.309 - NON-PRESSURE CHRONIC ULCER OF UNSP ANKLE WITH UNSP SEVERITY SNOMED Code(s): 743454056 Comment: - Afebrile and no leukocytosis. No signs of sepsis. - s/p revascularization with Dr. Mckeon on 01/07; surgical site without redness - Blood cultures, no growth day 5 - MRI, negative for osteomylitis - ID consult, input appreciated - Wound culture positive for MRSA - Continue daily dresssing changes with dakins solution 1/2 strength - Continue ASA, plavix, flagyl and doxycycline for total of 14 days (2) Hyponatremia Code(s): E87.1 - HYPO-OSMOLALITY AND HYPONATREMIA SNOMED Code(s): 56529748 Comment: - Sodium 123 - Urine Random sodium 97 - Suspect secondary to SIADH and depakote - Continue sodium tablet 1 gm and continue fluid restriction (3) Weakness Code(s): R53.1 - WEAKNESS SNOMED Code(s): 33154679 Comment: - Normal neuro exam - Supect LLE weakness/pain is secondary to reperfusion pain - Encourage OOB and continue PT (4) Diabetes 1.5, managed as type 2 Code(s): E10.9 - TYPE 1 DIABETES MELLITUS WITHOUT COMPLICATIONS SNOMED Code(s) : 158391293 Comment: - Glucose 90-120's - Continue Lantus (5) History of seizures Code(s): Z87.898 - PERSONAL HISTORY OF OTHER SPECIFIED CONDITIONS SNOMED Code( s): 708925948 Comment: - Neurology consult, pending for recommendations on Seizure medication ( Depakote possibly causing hyponatremia) - Continue depakote (6) Hypothyroid Code(s): E03.9 - HYPOTHYROIDISM, UNSPECIFIED SNOMED Code(s): 45061546 Comment: - TSH 10.36, Free T4 wnl, T3 0.46 - Continue levothyroxine - Recheck TSH in 4 to 6 weeks (7) GERD (gastroesophageal reflux disease) Code(s): K21.9 - GASTRO-ESOPHAGEAL REFLUX DISEASE WITHOUT ESOPHAGITIS SNOMED Code(s): 182694466 Comment: - Continue protonix (8) HLD (hyperlipidemia) Code(s): E78.5 - HYPERLIPIDEMIA, UNSPECIFIED SNOMED Code(s): 92479718 Comment: - Continue statin (9) DVT prophylaxis Code(s): RMV1242 - SNOMED Code(s): 200976872 Comment: (10) Full code status Code(s): Z78.9 - OTHER SPECIFIED HEALTH STATUS SNOMED Code(s): 808828365 Status and Disposition: Inpatient. Stable for discharge to [facility] today.
[2018-01-15] MEDS: Mometasone/Formoter 200/5 MDI INH SCH (08:12)
[2018-01-15] MEDS: Insulin LISPRO* 1 UNITS UNIT SUBCUT SCH ×2 (08:38→12:19)
[2018-01-15 08:48] LABS: EGFR Non-African American 85.3 (>60)
[2018-01-15] MEDS: Dakins Solution 0.25% (1/2 STR.)* 473 ML BTL TOPICAL SCH (09:30)
[2018-01-15] MEDS: Cholestyramine Resin* 4 GM POWDER PO SCH (09:32)
[2018-01-15] MEDS: Nicotine PATCH 21 MG/24 HR* PATCH TRANSDERM SCH (09:32)
[2018-01-15] MEDS: Docusate CAP* 100 MG PO SCH (09:34)
[2018-01-15] MEDS: metroNIDAZOLE TAB* 250 MG PO SCH (09:34)
[2018-01-15] MEDS: Sodium Chloride TAB* 1 GM PO SCH (09:34)
[2018-01-15] MEDS: Atorvastatin* 20 MG TAB PO SCH (09:35)
[2018-01-15] MEDS: levETIRAcetam TAB* 500 MG PO SCH (09:35)
[2018-01-15] MEDS: DOXYcycline CAP(*) 100 MG PO SCH (09:35)
[2018-01-15] MEDS: Ursodiol CAP* 300 MG PO SCH (09:35)
[2018-01-15] MEDS: Aspirin 81 mg CHEW TAB* 81 MG TAB.CHEW PO SCH (09:35)
[2018-01-15] MEDS: Clopidogrel TAB* 75 MG PO SCH (09:35)
--- NOTE | 2018-01-15 10:42 | DS ---
CC: Carlos Sierra MD; Dr. Quentin Dowell; [place]; Drew Mckeon MD* DISCHARGE SUMMARY: DATE OF ADMISSION: 01/09/18 DATE OF DISCHARGE: 01/15/18 ATTENDING PHYSICIAN: Judith Lr MD* (dictated by Stella Roberts NP). PRIMARY CARE PROVIDER: Dr. Quentin Dowell PRINCIPAL DIAGNOSES: 1. Left lower extremity arterial ulcer. 2. Cellulitis. 3. Hyponatremia. 4. Weakness. 5. Hypothyroidism. SECONDARY DIAGNOSES: 1. Diabetes mellitus. 2. History of epilepsy. 3. Gastroesophageal reflux disease. 4. Hyperlipidemia. CONSULTATIONS WHILE IN THE HOSPITAL: Dr. Carlos Sierra with Infectious Disease and Dr. Roni Esquivel with Neurology. STUDIES WHILE IN THE HOSPITAL: 1. Chest x-ray on 01/08/18. Radiologist Impression: Low lung volumes with pulmonary vascular congestion. 2. Left foot and ankle x-ray on 01/08/18. Soft tissue defect of the ankle, without appreciable erosion or periosteal reaction. Plain film findings of osteomyelitis are relatively late findings. If there is persistent clinical concern for osteomyelitis, recommend correlation with followup imaging, 3-phase bone scanning, white blood cell scanning and/or MRI of the infected region. Osteopenia. 3. Left lower extremity venous Doppler study on 01/10/18. Radiologist Impression: No left lower extremity deep vein thrombosis. 4. Left ankle MRI on 01/11/18. Radiologist Impression: Soft tissue swelling consistent with the patient's history of cellulitis, no evidence for osteomyelitis or abscess. DISCHARGE MEDICATIONS: New home medications: 1. Acetaminophen 650 mg oral every 6 hours as needed for fever and pain. 2. Dakin's Solution half strength, apply topical daily to left lower extremity ulcer. 3. Colace 200 mg oral twice daily. 4. Levothyroxine 25 mcg oral daily. 5. Milk of magnesia 30 mL oral every 6 hours as needed for constipation. 6. Melatonin 3 mg oral daily at bedtime as needed for sleep. 7. Dulera 200/5 two puffs inhalation twice daily. 8. Nicotine patch 21 mg transdermal daily. 9. MiraLAX 17 g oral daily as needed for constipation. 10. Sodium chloride 1 g oral daily. 11. Doxycycline 100 mg oral twice daily for 10 more days. 12. Flagyl 500 mg oral twice daily for 10 more days. 13. Keppra 250 mg oral twice daily. Changed Home Medications: Depakote decreased to 1000 mg oral daily at bedtime. Continued Home Medications: 1. Pantoprazole 40 mg oral daily. 2. Vitamin D3 of 2000 units oral daily. 3. Levemir 5 units subcutaneous daily at bedtime. 4. Ursodiol 300 mg oral daily. 5. Questran 4 g oral twice daily. 6. Atorvastatin 20 mg oral daily. 7. Plavix 75 mg oral daily. 8. Aspirin 81 mg oral daily. Discontinued Home Medications: Santyl. HISTORY OF PRESENT ILLNESS/HOSPITAL COURSE: Mr. Au is a 67-year-old male with past medical history significant for diabetes, hyperlipidemia, GERD, and epilepsy who underwent a left lower extremity revascularization with Dr. Mckeon. The patient has a history of chronic arterial ulcer in his left lower extremity, he is followed by [facility]. The patient after this procedure developed progressive generalized weakness and had a fall at home and was unable to get up. EMS was called and the patient was brought to the emergency room for further evaluation. While in the emergency room, the patient had a chest x-ray showing no acute findings. He also had x-rays of his left lower extremity showing no acute findings other than some soft tissue swelling. The hospitalists were asked to evaluate the patient for admission. While in the hospital, the patient had a left lower extremity venous ultrasound showing no signs of DVT. He was seen in consultation by Dr. Sierra for his concern for cellulitis and the patient was transitioned from vancomycin and cefepime to doxycycline and Flagyl with plans for a 2-week course. He also had an MRI showing no signs of osteomyelitis. The patient was noted to have hyponatremia during his stay. He appears to be at his baseline but we do not have labs from any earlier than November of this year. Due to this and the patient being on Depakote, it was felt that Depakote could be contributing to his hyponatremia and Dr. Esquivel with Neurology saw the patient and recommended weaning him off of his Depakote and starting Keppra in place. The patient's sodium has been stable. He has had no leukocytosis or fevers. The erythema to his leg has improved and mostly resolved. Wound is being treated with Dakin's Solution and it was felt that the patient needed rehab and has received a bed offer for [facility]. Mr. Au is stable for discharge [facility] today. Vital signs are as follows : Temperature 97.9, heart rate 52, respiratory rate 16, O2 saturations 98% on room air, blood pressure 135/63. DISCHARGE PLAN: Mr. Au will be discharged to [facility] today. Activity as tolerated. Should be on a regular consistent carbohydrate diet. In regards to his cellulites, he should continue Flagyl and doxycycline twice daily for 10 more days to complete a 14-day course. For his wound, he should continue to get half strength Dakin's Solution dressing changes daily. Recommend he should follow up with the [facility]ound Clinic to ensure he continues to get proper wound care and that his wound is healing. For his hyponatremia, his sodium has been stable. He was started on sodium chloride tablets daily in addition to a 1500 mL fluid restriction and recommend continuing to follow his sodium level. The patient was found to have hypothyroidism during his stay. He was started on levothyroxine. He should have a follow up TSH in 4 to 6 weeks. If the patient develops issues with his mood or other side effects of the Keppra he is being started on, he should follow up with Neurology outpatient if needed. The patient should be seen in followup by a provider at [facility] per their protocol. The patient has been resumed on other usual home medications and started on bowel regimen. The patient should return to the emergency room for any chest pain, shortness of breath. This is a summarized report of a complex medical history and hospital stay. For further details, please see the entire medical record. TIME SPENT: Time for this discharge was approximately 50 minutes, greater than half of that was spent with patient discussing discharge plans and instructions. CONDITION ON DISCHARGE: Stable. Reviewed by DHRUV TRUJILLO 01/16/18 1738 [id number]/[facility] #: [id number] [place]
[2018-01-15 10:55] VITALS: BP 136/62
--- NOTE | 2018-01-15 11:06 | PN ---
Progress Note - Progress Note Date of Service: 01/15/18 SOAP: Subjective: CC: leg wound HPI: 67 year old man with recent revascularization Left leg; wound anterior left leg has been there a few months, no pain, redness or drainage from wound. [place]ould odor resolved and leg swelling improved. No fever, rash, or diarrhea. Objective: Vital Signs Temp 36.4 C 01/15/18 08:19 Pulse 49 01/15/18 08:19 Resp 18 01/15/18 08:19 BP 136/62 01/15/18 08:19 Pulse Ox 97 01/15/18 08:19 Intake & Output 01/14/18 01/15/18 01/15/18 18:59 06:59 18:59 Intake Total 1220 0 590 Output Total 1701 1405 300 Balance -481 -1405 290 Intake: Oral 1220 0 590 Output: Urine 1701 1405 300 Other: Estimated Void Medium Medium # Bowel Movements 1 Estimated Stool Amount Medium # Voids 1 Gen:awake, no distress HEENT:PERRL, MMM Heart:RRR no murmur Lungs:CTA BL Abd:+BS NTND soft Skin: no rash MSK: Left lower extremity wound with surrounding edema and mild induration, no erythema or crepitus Laboratory Results - last 24 hr 01/14/18 01/14/18 01/14/18 11:33 16:59 20:46 WBC RBC Hgb Hct MCV MCH MCHC RDW Plt Count MPV Neut % (Auto) Lymph % (Auto) [place] % (Auto) Eos % (Auto) Baso % (Auto) Absolute Neuts (auto) Absolute Lymphs (auto) Absolute Monos (auto) Absolute Eos (auto) Absolute Basos (auto) Absolute Nucleated RBC Nucleated RBC % Sodium Potassium Chloride Carbon Dioxide Anion Gap BUN Creatinine Est GFR ( Amer) Est GFR (Non-Af Amer) BUN/Creatinine Ratio Glucose POC Glucose (mg/dL) 111 H 112 H 124 H Calcium 01/15/18 01/15/18 01/15/18 06:45 06:45 08:37 WBC 10.7 RBC 2.98 L Hgb 9.8 L Hct 29 L MCV 97 H MCH 33 H MCHC 34 RDW 15 Plt Count 259 MPV 7 L Neut % (Auto) 58.3 Lymph % (Auto) 25.2 [place] % (Auto) 11.1 H Eos % (Auto) 4.7 Baso % (Auto) 0.7 Absolute Neuts (auto) 6.2 Absolute Lymphs (auto) 2.7 Absolute Monos (auto) 1.2 H Absolute Eos (auto) 0.5 Absolute Basos (auto) 0.1 Absolute Nucleated RBC 0 Nucleated RBC % 0 Sodium 125 L Potassium 4.9 Chloride 100 L Carbon Dioxide 21 L Anion Gap 4 BUN 26 H Creatinine 0.89 Est GFR ( Amer) 109.7 Est GFR (Non-Af Amer) 85.3 BUN/Creatinine Ratio 29.2 H Glucose 87 POC Glucose (mg/dL) 91 Calcium 8.8 Assessment: 1. left lower leg chronic non pressure related wound complicated by cellulitis and wound infection 2. PAD s/p angioplasty 3. diabetes with neuropathy 4. hyponatremia Plan: 1.doxycycline 100 mg po bid and flagyl 500 mg po bid for 10 more days 35 minutes floor time >50% face to face discussing follow up antibiotic and wound treatment plans
== END 2018-01-15 15:00 | DRG 271 ==
LOC: ED 22:18 → MED 01-09 02:22
PROVIDERS: ADMIT Hospitalist; ATTEND Internal Medicine
PROC: 04CL3ZZ Extirpation of Matter from Left Femoral Artery, Percutaneous Approach (ICD-10-PCS; principal; 2018-01-08)
PROC: 047L3ZZ Dilation of Left Femoral Artery, Percutaneous Approach (ICD-10-PCS; 2018-01-08)
PROC: 047N3ZZ Dilation of Left Popliteal Artery, Percutaneous Approach (ICD-10-PCS; 2018-01-08)
PROC: 047Y3ZZ Dilation of Lower Artery, Percutaneous Approach (ICD-10-PCS; 2018-01-08)
PROC: 04CN3ZZ Extirpation of Matter from Left Popliteal Artery, Percutaneous Approach (ICD-10-PCS; 2018-01-08)
PROC: 04CY3ZZ Extirpation of Matter from Lower Artery, Percutaneous Approach (ICD-10-PCS; 2018-01-08)
PROC: B41G1ZZ Fluoroscopy of Left Lower Extremity Arteries using Low Osmolar Contrast (ICD-10-PCS; 2018-01-08)
DX: I77.2 Rupture of artery (principal); L03.116 Cellulitis of left lower limb; E87.1 Hypo-osmolality and hyponatremia; E11.40 Type 2 diabetes mellitus with diabetic neuropathy, unspecified; E11.51 Type 2 diabetes mellitus with diabetic peripheral angiopathy without gangrene; E78.5 Hyperlipidemia, unspecified; K21.9 Gastro-esophageal reflux disease without esophagitis; I10 Essential (primary) hypertension; F17.200 Nicotine dependence, unspecified, uncomplicated; I77.1 Stricture of artery; W19.XXXA Unspecified fall, initial encounter; R53.1 Weakness; E03.9 Hypothyroidism, unspecified; G40.909 Epilepsy, unspecified, not intractable, without status epilepticus; G89.29 Other chronic pain; T42.6X5A Adverse effect of other antiepileptic and sedative-hypnotic drugs, initial encounter; Z80.0 Family history of malignant neoplasm of digestive organs; Z83.3 Family history of diabetes mellitus; Y92.9 Unspecified place or not applicable; Z79.82 Long term (current) use of aspirin; Z79.02 Long term (current) use of antithrombotics/antiplatelets; Z79.4 Long term (current) use of insulin
CPT/HCPCS: 36415; 71045; 76937; 80048; 80053; 80164; 80202; 81003; 81015; 82550; 82565; 83605; 83935; 84300; 84439; 84443; 84479; 84484; 84520; 84550; 85025; 85610; 85730; 86140; 87040; 87070; 87076; 87077; 87086; 87186; 87205; 87640; 87641; 93005; 93922; 94640; 94760; 99156; 99157; 99284; 99406; A9270-GY; C1724; C1725; C1760; C1769; C1887; G8978-GP-CJ; G8978-GP-CK; G8978-GP-CL; G8978-GP-CN; G8979-GP-CH; G8979-GP-CI; G8979-GP-CJ; G8987-GO-CL; G8988-GO-CI; J0360; J0692; J1644; J2250; J2310; J2543; J3010; J3370

== ENCOUNTER → 2020-02-10 07:00 | Day surgery (SDC) | payer MEDICARE, MEDICAID ==
[~2020-02-10 07:00] MED LIST changes: -Clindamycin 900 MG IVPREMIX(* 900 MG/50 ML SDV IV ONE; -Clopidogrel TAB* 300 MG ONE; -Flumazenil* 0.1 MG/ML 5 ML MDV ONE; +Heparin 2 UNITS/ML IVPREMIX* 1,000 ML IV ONE; -Heparin 2 UNITS/ML IVPREMIX* 2,000 ML IV ONE; +Iodixanol 320 (CONTRAST) 100 ML SDV ONE; -Iohexol 350 (CONTRAST) 200 ML MDV IV ONE; -Midazolam* 1 MG/ML 10 ML VIAL (10 MG) ONE; +Midazolam* 1 MG/ML 5 ML VIAL (5 MG) ONE; -Naloxone* 0.4 MG/ML 1 ML VIAL ONE; -VERAPAMIL 2.5 MG/ML 2 ML VIAL ** 5 mg/2 ml ONE; -fentaNYL* 50 MCG/ML 2 ML VIAL (100 MCG VIAL) IV SLOW PU PRN; +fentaNYL* 50 MCG/ML 2 ML VIAL (100 MCG VIAL) ONE; -fentaNYL* 50 MCG/ML 5 ML VIAL (250 MCG VIAL) ONE; -hydrALAZINE IV* 20 MG/ML VIAL ONE; -nitroGLYCERIN DRIP* 25,000 MCG/250 ML BTL ONE
[2020-02-10 07:57] LABS: ABS Basophils 0.1 10^3/ul (0-0.2); ABS Eosinophils 0.7 10^3/ul (0-0.6); ABS Lymphocytes 2.5 10^3/ul (1.0-4.8); ABS Monocytes 1.2 10^3/ul (0-0.8); ABS Neutrophils 7.4 10^3/ul (1.5-7.7); Eosinophil % 6.1 %; Hematocrit 35 % (42-52); Lymphocyte % 20.8 %; Mean Corpuscular HGB Conc 34 g/dL (31-36); Mean Corpuscular Hemoglobin 32 pg (27-31); Mean Corpuscular Volume 95 fL (80-94); Mean Platelet Volume 7.5 fL (7.4-10.4); Nucleated Red Blood Cells % 0.1; Platelet Count 277 10^3/uL (150-450); Red Blood Count 3.69 10^6 /uL (4.18-5.48); Red Cell Distribution Width 14 % (10-15)
[2020-02-10 08:14] LABS: BUN/Creatinine Ratio 16.9 (8-20); Calcium 8.9 mg/dL (8.6-10.3); EGFR African American 44.6 (>60); EGFR Non-African American 36.9 (>60); Potassium 4.7 mmol/L (3.5-5.0)
[2020-02-10 08:18] LABS: Activated Partial Thrombo Time 33.7 seconds (26.0-38.0); INR 1.04 (0.82-1.09)
== END | disposition home or self-care (01) ==
LOC: CHICATH 07:00
PROVIDERS: ATTEND Radiology Diagnostic Radiology
DX: I70.235 Atherosclerosis of native arteries of right leg with ulceration of other part of foot (principal); E11.621 Type 2 diabetes mellitus with foot ulcer; L97.519 Non-pressure chronic ulcer of other part of right foot with unspecified severity; Z79.84 Long term (current) use of oral hypoglycemic drugs; F17.210 Nicotine dependence, cigarettes, uncomplicated; E78.00 Pure hypercholesterolemia, unspecified; K83.1 Obstruction of bile duct
CPT/HCPCS: 36415; 75736; 76937; 80048; 85025; 85610; 85730; 99156; 99157; A9270-GY; C1760; C1769; C1887; C1894; J1644; J2250; J3010

== ENCOUNTER 2021-12-05 02:28 | Observation (INO) ==
[2021-12-05 03:21] LABS: Hematocrit 31 % (42-52); Hemoglobin 10.6 g/dL (14.0-18.0); Mean Corpuscular HGB Conc 34 g/dL (31-36); Mean Corpuscular Hemoglobin 32 pg (27-31); Mean Corpuscular Volume 94 fL (80-94); Mean Platelet Volume 6.7 fL (7.4-10.4); Platelet Count 266 10^3/uL (150-450); Red Blood Count 3.34 10^6 /uL (4.18-5.48); Red Cell Distribution Width 22 % (10-15); White Blood Count 16.2 10^3/uL (3.5-10.8)
[2021-12-05 03:38] LABS: Albumin 2.8 g/dL (3.2-5.2); Albumin/Globulin Ratio 1.1 (1-3); Calcium 7.2 mg/dL (8.6-10.3); Globulin 2.6 g/dL (2-4); Total Bilirubin 0.3 mg/dL (0.2-1.0); Total Protein 5.4 g/dL (6.4-8.9); eGFR CKD-EPI 10.9 (>60)
[2021-12-05 03:51] LABS: Rapid COVID-19 Molecular Undetected (Undetected)
[2021-12-05 04:15] LABS: INR 1.12 (0.86-1.15)
[2021-12-05 04:19] LABS: Activated Partial Thrombo Time 27.1 seconds (26.0-38.0)
[2021-12-05] MEDS ORDERED: ceFAZolin 2 GM PREMIX 2 GM/50 ML BAG ONE (04:42)
[2021-12-05] MEDS ORDERED: Propofol 10 MG/ML 20 ML BTL ONE (05:00)
[2021-12-05] MEDS ORDERED: fentaNYL 250 mcg/5 ml 50 MCG/ML 5 ml VIAL (250 MCG) ONE (05:00)
[2021-12-05] MEDS ORDERED: Midazolam 2 mg/2 ml VIAL 1 mg/ml 2 ml VIAL (2 mg) ONE (05:02)
[2021-12-05 05:12] LABS: ABS Lymphocytes 0.6 10^3/ul (1.0-4.8); ABS Monocytes 1.2 10^3/ul (0-0.8); ABS Neutrophils 14.3 10^3/ul (1.5-7.7); Eosinophil % 0.1 %; Lymphocyte % 3.8 %
[2021-12-05] MEDS ORDERED: Labetalol IV 5 MG/ML 20 ml VIAL ONE ×2 (05:17→06:44)
[2021-12-05] MEDS ORDERED: hydrALAZINE 20 mg/ml 1 ML Vial IV ONE (05:17)
[2021-12-05] MEDS ORDERED: Naloxone 0.4 mg VIAL 0.4 mg/ml 1 ml VIAL IV PRN (06:37)
[2021-12-05] MEDS: Labetalol IV 5 MG/ML 20 ml VIAL IV PUSH ONE ×3 (06:48→08:55)
[2021-12-05] MEDS ORDERED: Labetalol IV 5 MG/ML 20 ml VIAL IV PUSH PRN (07:36)
[2021-12-05] MEDS ORDERED: Dextrose 50% Syringe 50 ml 25 GM/50 ML SYRINGE IV PUSH PRN (07:37)
[2021-12-05] MEDS: Fluticasone NASAL SPRAY 50MCG 16 gm SPRAY BTL INTRANASAL SCH ×2 (12:43→20:14)
[2021-12-05] MEDS: Insulin GLARGINE 100 un/ml 10 ml VIAL SUBCUT SCH (20:15)
[2021-12-06 05:07] LABS: ABS Basophils 0.1 10^3/ul (0-0.2); ABS Lymphocytes 0.7 10^3/ul (1.0-4.8); ABS Monocytes 1.5 10^3/ul (0-0.8); Eosinophil % 0.3 %; Hematocrit 29 % (42-52); Hemoglobin 9.4 g/dL (14.0-18.0); Lymphocyte % 3.8 %; Mean Corpuscular HGB Conc 33 g/dL (31-36); Mean Corpuscular Hemoglobin 31 pg (27-31); Mean Corpuscular Volume 95 fL (80-94); Mean Platelet Volume 6.6 fL (7.4-10.4); Platelet Count 237 10^3/uL (150-450); Red Cell Distribution Width 21 % (10-15); White Blood Count 17.3 10^3/uL (3.5-10.8)
[2021-12-06 05:22] LABS: Calcium 6.7 mg/dL (8.6-10.3); Potassium 4.2 mmol/L (3.5-5.0); eGFR CKD-EPI 9.3 (>60)
[2021-12-06] MEDS: Fluticasone NASAL SPRAY 50MCG 16 gm SPRAY BTL INTRANASAL SCH ×2 (08:36→20:24)
[2021-12-06] MEDS ORDERED: Heparin 1,000 UNIT/ML 10 ml (10,000 UNITS) CATHLAB/DIALYSIS DIALYSIS ONE ×2 (10:05→12:30)
[2021-12-06] MEDS: Insulin GLARGINE 100 un/ml 10 ml VIAL SUBCUT SCH (20:25)
[2021-12-07] MEDS: Fluticasone NASAL SPRAY 50MCG 16 gm SPRAY BTL INTRANASAL SCH (08:45)
[2021-12-07 11:38] LABS: Hematocrit 31 % (42-52); Hemoglobin 10.4 g/dL (14.0-18.0); Mean Corpuscular HGB Conc 34 g/dL (31-36); Mean Corpuscular Hemoglobin 33 pg (27-31); Mean Corpuscular Volume 96 fL (80-94); Mean Platelet Volume 6.9 fL (7.4-10.4); Platelet Count 209 10^3/uL (150-450); Red Blood Count 3.19 10^6 /uL (4.18-5.48); Red Cell Distribution Width 22 % (10-15); White Blood Count 16.3 10^3/uL (3.5-10.8)
[2021-12-07 11:47] LABS: Potassium 3.9 mmol/L (3.5-5.0)
[2021-12-07 11:53] LABS: C Reactive Protein 5.29 mg/L (<8.01); eGFR CKD-EPI 11.4 (>60)
[2021-12-07 12:05] VITALS: BP 149/62
== END 2021-12-07 14:00 ==
LOC: ED 02:28 → MEDTELE 04:24 → OR 04:24 → SUATTDRO 07:38
PROVIDERS: ADMIT Internal Medicine; ATTEND Surgery
PROC: O.GEAVF (2021-12-05 05:00)